=== PATIENT | female | born 1940 | race Caucasian/White ===

== ENCOUNTER 2017-06-23 07:45 | Outpatient (CLI) | payer MEDICARE, OTHER ==
[2017-06-23 11:20] LABS: Hemoglobin 12.9 g/dL (12.0-16.0); Mean Corpuscular HGB CONC 32.4 g/dL (32.0-36.0); Mean Corpuscular Hemoglobin 33.8 pg (27.0-31.0); Mean Platelet Volume 8.2 fL (7.4-10.4); Platelet Count 191 thou/uL (130-400); RBC Distribution Width 13.4 % (11.5-14.5); Red Blood Cell (RBC) Count 3.82 mill/uL (4.20-5.40); White Blood Cell (WBC) Count 8.6 thou/uL (4.8-10.8)
[2017-06-23 11:34] LABS: ALT (SGPT) 13 U/L (8-55); AST (SGOT) 19 U/L (5-34); Alkaline Phosphatase 77 U/L (40-150); Anion Gap 16 mmol/L (10-20); BUN (Urea Nitrogen) 16 mg/dL (9.8-20.1); Bilirubin, Total 0.7 mg/dL (0.2-1.2); Calc. Creatinine Clearance 0 mL/min (70-130); Calcium 9.4 mg/dL (7.8-10.44); Carbon Dioxide 27 mmol/L (23-31); Chloride 103 mmol/L (98-107); Estimated GFR-MDRD 74; Globulin 2.7 g/dL (2.4-3.5); Glucose 90 mg/dL (83-110); Potassium 3.6 mmol/L (3.5-5.1); Protein, Total 6.7 g/dL (6.0-8.3); Sodium 142 mmol/L (136-145)
[2017-06-23 11:40] LABS: INR-International Normal Ratio 1.1; PTT 27.5 SEC (22.9-36.1); Prothrombin Time 14.2 SEC (12.0-14.7)
--- NOTE | 2017-07-01 19:32 | EKG ---
Test Reason : Blood Pressure : / mmHG Vent. Rate : 101 BPM Atrial Rate : 101 BPM P-R Int : 170 ms QRS Dur : 090 ms QT Int : 356 ms P-R-T Axes : 000 111 024 degrees QTc Int : 461 ms Electronic atrial pacemaker Low voltage QRS Left posterior fascicular block Cannot rule out Anterior infarct (cited on or before 12-MAR-2009) Abnormal ECG When compared with ECG of 27-MAY-2010 15:05, Electronic atrial pacemaker has replaced Sinus rhythm Left posterior fascicular block is now Present RSR' pattern in V1 is no longer Present Questionable change in initial forces of Inferior leads Confirmed by ARYA TREVIÑO (2) on 07/01/2017 7:31:32 PM Referred By: KAMILA Confirmed By:ARYA TREVIÑO
== END 2017-06-23 07:46 | disposition home or self-care (01) ==
LOC: LABBT 07:45
PROVIDERS: ATTEND Internal Medicine Cardiovascular Disease
DX: Z01.818 Encounter for other preprocedural examination (principal); I47.2 Ventricular tachycardia; R94.39 Abnormal result of other cardiovascular function study
CPT/HCPCS: 80053; 85027; 85610; 85730; 93005; 93010

== ENCOUNTER → 2017-06-28 | Day surgery (SDC) | payer MEDICARE, OTHER ==
[2017-06-23 08:34] VITALS: BMI 30.9
[~2017-06-28] MED LIST: Acetaminophen 325 MG TAB ONE; Fentanyl 100 MCG/2 ML VIAL ONE; Heparin 10,000 UNITS/1 ML VIAL ONE; Iopamidol 370 76% 100 ML VIAL ONE; Iopamidol 370 76% 50 ML VIAL FS ONE; Midazolam HCl 2 mg/2 ml Vial ONE; Protamine Sulfate 50 MG/5 ML VIAL ONE
== END ==
LOC: CCL 06:03
PROVIDERS: ATTEND Internal Medicine Cardiovascular Disease
DX: I25.5 Ischemic cardiomyopathy (principal); I47.2 Ventricular tachycardia; I25.10 Atherosclerotic heart disease of native coronary artery without angina pectoris; I10 Essential (primary) hypertension; I25.2 Old myocardial infarction; E03.9 Hypothyroidism, unspecified; I48.0 Paroxysmal atrial fibrillation; E78.00 Pure hypercholesterolemia, unspecified; Z87.891 Personal history of nicotine dependence; Z95.810 Presence of automatic (implantable) cardiac defibrillator; Z96.653 Presence of artificial knee joint, bilateral; Z95.5 Presence of coronary angioplasty implant and graft; Z90.49 Acquired absence of other specified parts of digestive tract; Z90.710 Acquired absence of both cervix and uterus; Z98.890 Other specified postprocedural states; Z79.82 Long term (current) use of aspirin; Z79.899 Other long term (current) drug therapy
CPT/HCPCS: 85347; 93459; C1769; 99152; 99153; J1644; J2250; J2720; J3010

== ENCOUNTER 2018-09-21 08:06 | Outpatient (CLI) | payer MEDICARE, OTHER ==
--- NOTE | 2018-09-21 08:20 | RAD ---
F2 views chest. HISTORY: Cardiomyopathy. PA and lateral views of the chest is obtained on 09/21/2018. Comparison made to previous exam from 2014. 2 views chest demonstrates sternotomy wires. Cardiomegaly noted. There is a dual-lead intracardiac defibrillator. Pulmonary vascular congestion seen. No evidence of effusions, pneumonia or pneumothorax seen. IMPRESSION: Cardiomegaly and pulmonary vascular congestion.
== END 2018-09-21 08:07 | disposition home or self-care (01) ==
LOC: BICRAD 08:06
PROVIDERS: ATTEND Internal Medicine Cardiovascular Disease
DX: I25.5 Ischemic cardiomyopathy (principal); I51.7 Cardiomegaly; R09.89 Other specified symptoms and signs involving the circulatory and respiratory systems
CPT/HCPCS: 71046; 80053; 80061; 84443

== ENCOUNTER 2019-03-02 09:48 | Outpatient (CLI) | payer MEDICARE, OTHER ==
--- NOTE | 2019-03-02 11:19 | BD ---
DEXA BONE DENSITY STUDY: INDICATIONS: Postmenopausal. LUMBAR SPINE BMD (g/cm2) T-SCORE L1 1.335 +3.1 L2 1.359 +3.0 L3 1.308 +2.0 L4 1.169 +1.0 TOTAL 1.286 +2.2 LEFT FEMORAL NECK 0.725 -1.1 TOTAL 0.848 -0.8 IMPRESSION: 1. Osteopenia of the left femoral neck. 2. Normal bone mineral density of the lumbar spine. POS: OFF
== END 2019-03-02 09:49 | disposition home or self-care (01) ==
LOC: BICMAMMO 09:48
PROVIDERS: ATTEND Obstetrics & Gynecology
DX: Z13.820 Encounter for screening for osteoporosis (principal); M85.852 Other specified disorders of bone density and structure, left thigh
CPT/HCPCS: 77080

== ENCOUNTER 2019-04-04 11:22 | Outpatient (CLI) | payer MEDICARE, OTHER ==
--- NOTE | 2019-04-04 11:43 | RAD ---
EXAM: Chest 2 views: HISTORY: Ventricular tachycardia COMPARISON: 09/21/2018 FINDINGS: There is an enlarged but stable cardiomediastinal silhouette. The patient is status post sternotomy. The pacemaker is unchanged in position. There is no evidence of consolidation, mass, or pleural effusion. The bones are unremarkable. Calcified implant capsules are seen in the breasts. IMPRESSION: No evidence of acute cardiopulmonary disease
== END 2019-04-04 11:23 | disposition home or self-care (01) ==
LOC: BICRAD 11:22
PROVIDERS: ATTEND Internal Medicine Cardiovascular Disease
DX: I47.2 Ventricular tachycardia (principal); E78.00 Pure hypercholesterolemia, unspecified
CPT/HCPCS: 36415; 71046; 80061

== ENCOUNTER 2019-04-29 14:47 | Day surgery (SDC) | payer MEDICARE, OTHER ==
[~2019-04-29 14:47] MED LIST changes: -Acetaminophen 325 MG TAB ONE; +Dexamethasone 20 MG/5 ML VIAL ONE; -Fentanyl 100 MCG/2 ML VIAL ONE; -Heparin 10,000 UNITS/1 ML VIAL ONE; -Iopamidol 370 76% 100 ML VIAL ONE; -Iopamidol 370 76% 50 ML VIAL FS ONE; +Lidocaine 1% PF 5 ML VIAL ONE; -Midazolam HCl 2 mg/2 ml Vial ONE; +Ondansetron PF 4 MG/2 ML Vial ONE; +PHENYLEPHRINE-NS 100 MCG/ML 10 ML SYRINGE ONE; +PROPOFOL 200 MG/20 ML VIAL ONE; -Protamine Sulfate 50 MG/5 ML VIAL ONE; +Rocuronium Bromide 10 MG/ML (10ML VIAL) ONE; +Succinylcholine Chloride 20 MG/ML 10 ml SYRINGE FS ONE
[2019-04-29] MEDS ORDERED: Fentanyl 100 MCG/2 ML VIAL ONE ×2 (17:01→17:18)
[2019-04-29] MEDS ORDERED: Ondansetron HCl/PF 4 MG/2 ML Vial IVP PRN (17:07)
[2019-04-29] MEDS ORDERED: Phenylephrine HCL 10 MG/ML VIAL ONE (17:18)
--- NOTE | 2019-04-29 17:42 | HP ---
DATE OF CONSULTATION: 04/29/2019 REQUESTING PHYSICIAN: Dr. Dell Quispe. REASON FOR CONSULTATION: Esophageal food impaction. HISTORY OF PRESENT ILLNESS: Dulce Maria Travis is a 78-year-old woman with no significant past gastrointestinal history. She has had a coronary artery bypass graft, pacemaker/defibrillator placement. She takes aspirin 325 mg daily, but no other anticoagulation. Earlier today, she was eating lunch. She says she had a piece of roast beef and had an acute sensation of dysphagia, feeling as if it lodged in the back of her neck. This was quite alarming to her. She had copious secretions, felt like she had debris through her nose, and intermittent gurgling sound in the back of the neck. For quite some time, she was unable to handle her secretions, was having to spit them back out. Upon arrival to the emergency department, she received glucagon. She is no longer bringing up copious secretions yet. The sensation remains in the back of her throat and she still has that intermittent gurgling sound which I can hear distinctly. She can take only small sips of water; anything more, will come back up. This is never happened to her before. She has never undergone upper endoscopy. She has no chest pain or abdominal pain or any other symptoms. REVIEW OF SYSTEMS: Full review of systems including constitutional, head, eyes, ears, nose, throat, GI, , cardiovascular, respiratory, musculoskeletal, neurologic systems is negative except as noted in the HPI. PAST MEDICAL HISTORY: Coronary artery disease status post CABG, pacemaker/defibrillator placement, myocardial infarction, hypothyroidism, hyperlipidemia, appendectomy, hysterectomy, bilateral knee surgery, tonsillectomy. ALLERGIES: NO KNOWN DRUG ALLERGIES. MEDICATIONS: 1. Ambien. 2. Carvedilol. 3. Furosemide. 4. Hydrocodone/acetaminophen. 5. Levothyroxine. 6. Lisinopril. 7. Spironolactone. 8. Tramadol. 9. Atorvastatin. SOCIAL HISTORY: No smoking, alcohol, or drug use. FAMILY HISTORY: Noncontributory. PHYSICAL EXAMINATION: VITAL SIGNS: Temperature 98.5, pulse 97, blood pressure 161/101, and 94% oxygen saturation on room air. GENERAL: A 78-year-old woman, sitting up in the chair, in mild distress. SKIN: No jaundice. No rashes were palpable. Eyes, no scleral icterus. Extraocular movements intact. ENT, mucous membranes moist. No oral lesions. The patient has intermittent gurgling sound from the back of her throat, large tongue. I am unable to view most of the retropharynx. LYMPH: No submandibular or supraclavicular lymphadenopathy. Thyroid, nontender to palpation. HEART: Regular rate and rhythm. Pacemaker/defibrillator in place. Sternotomy scar. LUNGS: Clear to auscultation bilaterally. ABDOMEN: Bowel sounds present. Soft, nontender to deep palpation throughout. EXTREMITIES: No peripheral edema. VESSELS: Radial pulses, 2+ bilaterally. NEUROLOGIC: Cranial nerves 2 through 12 intact bilaterally. No focal deficits. ASSESSMENT AND PLAN: 1. Possible esophageal foreign body. 2. Acute dysphagia. The patient is able to handle her secretions now after glucagon administration, yet the sensation of foreign body persists, and she does continue to have these gurgling noise which is involuntary from the back of the throat. It makes me suspicious for ongoing partial obstruction. She is breathing normally. We will plan to perform EGD urgently this afternoon. I anticipate she will likely be able to be discharged home following the procedure. Further recommendations following EGD. Thank you for the consultation. Please call anytime with questions or concerns. Job ID: [id number]
--- NOTE | 2019-04-29 22:10 | OP ---
DATE OF PROCEDURE: 04/29/2019 [employer]ISS[employer] SURGEON: None. PROCEDURE PERFORMED: EGD with foreign body removal. INDICATIONS: 1. Esophageal food bolus impaction. 2. Acute dysphagia. MEDICATIONS: See Anesthesia record. FINDINGS: After discussion of the risks, benefits, and alternatives of the procedure, informed consent was obtained and witnessed. Pre-endoscopic cardiopulmonary examination was satisfactory. Time-out was performed before sedation was achieved. Sedation was achieved with Anesthesia assistance in the endoscopy unit. The patient was endotracheally intubated for airway protection and placed in left lateral decubitus position. A Pentax adult upper endoscope was placed into the oropharynx and passed through the cricopharyngeus under direct visualization. I immediately encountered a large amount of food matter in the upper esophagus. An extensive amount of time was spent removing food matter from the esophagus. We used Gonzalez Net as well as the rat-tooth forceps, primarily for this purpose. There was a large amount of what appeared to be cabbage, roast beef, and rice, essentially filling up the esophagus all the way to the GE junction. There is severe maceration and mucosal edema of the entire esophagus. There were no longitudinal furrows or concentric rings, no discrete stricture visualized. No mass visualized in the esophagus. Once all of the food had been removed, the endoscope was able to be passed into the stomach. There was a large amount of food material in the gastric fundus, obscuring the view of some of the gastric fundus. Otherwise, the gastric mucosa appeared normal throughout. The endoscope was advanced through the pylorus into the first and second portions of the duodenum, with some food particles within the duodenum as well, but normal appearing mucosa. The endoscope was then withdrawn slowly, again examining the entire esophagus. Again, there was no mass or discrete stricture visualized. The entire esophagus appears edematous and macerated. The upper endoscope was completely withdrawn and the patient allowed to recover. The patient tolerated the procedure well. There were no immediate postprocedure complications. IMPRESSION: 1. Massive amount of food filling most of the esophagus (beef, rice, cabbage), now removed. 2. Severe maceration and edema of the entire esophagus. No mass or discrete stricture visualized. 3. Retained food in the gastric fundus and in the duodenal bulb. 4. Otherwise normal EGD. RECOMMENDATIONS: 1. Pantoprazole 40 mg twice daily. 2. Liquid diet for the next two days, then slowly advance diet as tolerated. 3. Chew food thoroughly. 4. We will have the patient follow up in the GI [facility] with Dr. Palm or his PA in the next 1-2 weeks. The patient will be needing repeat upper endoscopy. Job ID: [id number]
== END 2019-04-29 19:33 | disposition home or self-care (01) ==
LOC: ERS 14:47 → SDC/OP 18:28
PROVIDERS: ATTEND Internal Medicine
PROC: 0DC58ZZ Extirpation of Matter from Esophagus, Via Natural or Artificial Opening Endoscopic (ICD-10-PCS; principal; 2019-04-29)
DX: T18.128A Food in esophagus causing other injury, initial encounter (principal); E78.5 Hyperlipidemia, unspecified; E03.9 Hypothyroidism, unspecified; I25.2 Old myocardial infarction; I25.10 Atherosclerotic heart disease of native coronary artery without angina pectoris; Z79.899 Other long term (current) drug therapy; Z79.82 Long term (current) use of aspirin
CPT/HCPCS: 43247; 96374; 99285; J1610; J1100; J2001; J2370; J2405; J2704; J3010

== ENCOUNTER 2019-05-08 12:02 | Emergency (ER) | payer MEDICARE, OTHER ==
[~2019-05-08 12:02] MED LIST changes: -Dexamethasone 20 MG/5 ML VIAL ONE; +Iopamidol-370 76% 500 ML 1 ML ONE; -Lidocaine 1% PF 5 ML VIAL ONE; -Ondansetron PF 4 MG/2 ML Vial ONE; -PHENYLEPHRINE-NS 100 MCG/ML 10 ML SYRINGE ONE; -PROPOFOL 200 MG/20 ML VIAL ONE; -Rocuronium Bromide 10 MG/ML (10ML VIAL) ONE; -Succinylcholine Chloride 20 MG/ML 10 ml SYRINGE FS ONE
--- NOTE | 2019-05-08 13:21 | CT ---
CT BRAIN WITHOUT CONTRAST: Date: 05/08/19 HISTORY: Fall, syncope, dizziness. FINDINGS: There are changes of chronic small vessel ischemic disease and periventricular white matter. The vent ricular size is appropriate and the basilar cisterns are patent. No evidence of acute infarct, hemorr colin, midline shift, or abnormal extra-axial fluid collections are seen. The bony calvarium is intact . The visualized paranasal sinuses and mastoid air cells are well aerated. IMPRESSION: No CT evidence of acute intracranial process. POS: MILAGROH
[2019-05-08 13:58] LABS: #Eosinphils 0.2 thou/uL (0.0-0.7); #Lymphocytes 0.8 thou/uL (1.20-3.40); #Monocytes 0.5 thou/uL (0.11-0.59); #Neutrophils 13.2 thou/uL (1.40-6.50); %Basophils 0.2 % (0.0-1.0); %Eosinophils 1.2 % (0.0-10.0); %Lymphocytes 5.5 % (21.0-51.0); %Monocytes 3.2 % (0.0-10.0); Hemoglobin 13.6 g/dL (12.0-16.0); Mean Corpuscular HGB CONC 33.3 g/dL (32.0-36.0); Mean Corpuscular Hemoglobin 34.5 pg (27.0-31.0); Platelet Count 163 thou/uL (130-400); RBC Distribution Width 12.1 % (11.5-14.5); Red Blood Cell (RBC) Count 3.94 mill/uL (4.20-5.40); White Blood Cell (WBC) Count 14.6 thou/uL (4.8-10.8)
--- NOTE | 2019-05-08 14:19 | RAD ---
PORTABLE CHEST 1 VIEW: Date: 05/08/19 Time: 1333 hours HISTORY: Syncope. Fall. FINDINGS: Comparison made with exam of 04/04/19. Left-sided AICD remains in place. There are changes of median sternotomy. The heart is enlarged. Aort a is tortuous. Chronic changes are again seen. No lobar consolidation, pneumothoraces, niurka pulmonar y edema, or pleural effusions are identified. IMPRESSION: No acute process. POS: IZZY
--- NOTE | 2019-05-08 14:20 | RAD ---
RIGHT KNEE 4 VIEWS: Date: 05/08/19 HISTORY: Right knee pain. FINDINGS/IMPRESSION: There are postop changes of total knee arthroplasty in good position and alignment. No acute fracture or dislocation identified. POS: MILAGRO
[2019-05-08 14:21] LABS: ALT (SGPT) 22 U/L (8-55); AST (SGOT) 38 U/L (5-34); Albumin 3.8 g/dL (3.4-4.8); Alkaline Phosphatase 69 U/L (40-110); Anion Gap 13 mmol/L (10-20); BUN (Urea Nitrogen) 13 mg/dL (9.8-20.1); Bilirubin, Total 1.2 mg/dL (0.2-1.2); CK (CPK) 811 U/L (29-168); Calc. Creatinine Clearance 0 mL/min (70-130); Calcium 8.6 mg/dL (7.8-10.44); Carbon Dioxide 26 mmol/L (23-31); Chloride 103 mmol/L (98-107); Estimated GFR-MDRD 75; Globulin 2.2 g/dL (2.4-3.5); Glucose 100 mg/dL (83-110); Lipase 8 U/L (8-78); Potassium 3.8 mmol/L (3.5-5.1); Sodium 138 mmol/L (136-145)
[2019-05-08 14:40] LABS: Bilirubin Negative (Negative); Blood, Urine Negative (Negative); Clarity Clear (Clear); Glucose, Urine (Dipstick) Normal (Negative); Leukocyte Negative Leu/uL (Negative); Nitrite Negative (Negative); Protein, Urine (Dipstick) Negative (Neg-Trace); Urobilinogen Normal mg/dL (Less than 2)
--- NOTE | 2019-05-08 15:23 | CT ---
CT ANGIOGRAM OF THE CHEST: HISTORY: Syncope. Dizziness. COMPARISON: None. TECHNIQUE: CT angiogram of the chest is performed in the axial plane. Three-dimensional reformatted images are s ubmitted for interpretation. FINDINGS: Mediastinum: No mass, lymphadenopathy or hematoma. Heart: Cardiomegaly. No significant pericardial fluid. There are coronary calcifications. Aorta: Limited evaluation due to lack of contrast opacification. There is atherosclerosis. Upper solid abdominal viscera: Grossly no abnormality. Reflux of contrast into the inferior vena cava may be due to component of right heart failure. Trachea and central bronchi: Patent. Pleural spaces: No effusion. Lung parenchyma: No suspicious masses or consolidation. There are emphysematous changes. Linear opaci ty in the lung bases may represent subsegmental atelectasis or scarring. Pneumothorax: None. Osseous structures: No lytic or blastic lesions. Pulmonary arteries: Adequate contrast opacification pulmonary arterial system to the level of segment al arteries. No filling defect to suggest pulmonary embolism. IMPRESSION: 1. No evidence of pulmonary artery embolism to the level of the segmental arteries. 2. Emphysematous changes lung parenchyma. 3. Possible right heart failure. Correlate clinically. Transcribed Date/Time: 05/08/2019 3:26 PM
== END 2019-05-08 17:46 ==
LOC: ERS 12:02
DX: R53.1 Weakness (principal); I25.2 Old myocardial infarction; E03.9 Hypothyroidism, unspecified; E78.5 Hyperlipidemia, unspecified; Z79.891 Long term (current) use of opiate analgesic; Z79.899 Other long term (current) drug therapy; W19.XXXA Unspecified fall, initial encounter
CPT/HCPCS: 36415; 70450; 71045; 71275; 80053; 81003; 82140; 82550; 83690; 83880; 84443; 84484; 85025; 85379; 93005; 96360; 96361; Q9967

== ENCOUNTER 2019-05-31 09:16 | Outpatient (CLI) | payer MEDICARE, OTHER ==
--- NOTE | 2019-05-31 11:20 | CT ---
CT ABDOMEN WITH AND WITHOUT CONTRAST: CT PELVIS WITH AND WITHOUT CONTRAST: HISTORY: Microscopic hematuria. Incontinence. COMPARISON: None. TECHNIQUE: Abdomen and pelvic CT is performed with and without contrast following urogram protocol. C oronal reformatted images are submitted for interpretation. FINDINGS: ABDOMEN Lung bases: Chronic changes. Heart: Enlarged. No significant pericardial effusion. Aorta: Atherosclerosis. Mild prominence of the descending thoracic aorta. No significant periaortic f at stranding. Moderate stenosis of the infrarenal abdominal aorta secondary to eccentric noncalcified thrombus. At this level, the aorta measures 3 cm anterior-posterior by 3 cm mediolateral . Liver: Appropriate enhancement. No enhancing masses. Spleen: Appropriate enhancement Pancreas: Appropriate enhancement Adrenal glands: Symmetric enhancement Lymph nodes: No gastrohepatic, retrocrural or periportal lymphadenopathy Portal vein: Patent Gallbladder: Unremarkable Kidneys: Noncontrast: No hydronephrosis, nephrolithiasis or perinephric fat stranding. Contrast: Symmetric enhancement of the kidneys. Delayed: Symmetric excretion into a decompressed intrarenal and extrarenal collecting system. No obvi ous filling defects. Mesentery: No mass, nephropathy, free air or free fluid Alimentary canal: Limited evaluation due to lack of oral contrast administration. No evidence of orly l obstruction. The ileocecal junction is normal. Normal caliber appendix. Scattered fecal material in a nondistended/nondilated colon. Descending colon and sigmoid colon diverticulosis without evidenc e of diverticulitis. Limited evaluation of the colon. PELVIS: Reproductive organs and pelvis: Surgically absent uterus. Pessary is noted. No pelvic mass, lymphaden opathy, free air or free fluid. Urinary bladder: No mucosal abnormality. No filling defects in the dependent portion of the urinary b ladder which is opacified with contrast. No lytic or blastic lesions in the osseous structures IMPRESSION: 1. No evidence of nephrolithiasis or obstructive uropathy. 2. Atherosclerosis and moderate short segment narrowing of a prominent infrarenal abdominal aorta. Ad ditional extensive atherosclerotic disease of the arterial system is noted, incompletely evaluated. Transcribed Date/Time: 05/31/2019 11:30 AM
== END 2019-05-31 09:17 | disposition home or self-care (01) ==
LOC: BICCT 09:16
PROVIDERS: ATTEND Urology
DX: N39.41 Urge incontinence (principal); R31.29 Other microscopic hematuria; I70.0 Atherosclerosis of aorta
CPT/HCPCS: 74178; 81001; 87086

== ENCOUNTER 2019-06-15 06:55 | Day surgery (SDC) | payer MEDICARE, OTHER ==
[2019-06-12 10:39] VITALS: BMI 28.1
[2019-06-15] MEDS ORDERED: Lidocaine Viscous Sol 2% 15 ml UD Cup ONE (08:42)
--- NOTE | 2019-06-15 09:52 | OP ---
DATE OF PROCEDURE: 06/15/2019 PROCEDURES PERFORMED: Esophagogastroduodenoscopy with Hallman dilatation. PREMEDICATION: Given by Anesthesiology Department. PREPROCEDURE DIAGNOSES: Dysphagia with recent food bolus impaction. POSTPROCEDURE DIAGNOSES: 1. Normal esophagus. 2. Z-line at 40 cm and regular. 3. Normal stomach and duodenum. DESCRIPTION OF PROCEDURE: Written consents were obtained prior to procedure. After adequate sedation, forward-viewing endoscope was advanced down the stomach under direct vision to the second portion of duodenum. Both the second portion and the bulb appeared normal. The pylorus was patent. The gastric antrum, body, fundus, and cardia all appeared normal. Retroflexion did not show any abnormality. The GE junction was located at 40 cm with a regular Z-line. The esophagus appeared normal with normal mucosa. The endoscope was removed. A 54-Maltese Hallman dilator was used to empirically dilate the esophagus with three passes with mild resistance. Repeat endoscopy did not show any mucosal tear or bleeding. The instrument was therefore removed. The patient tolerated the procedure well. ASSESSMENT: 1. Normal esophagus, status post empiric dilatation. 2. Otherwise normal upper endoscopy. RECOMMENDATION: 1. Small bite, chew well. 2. Followup as needed. Job ID: [id number]
[2019-06-15] MEDS ORDERED: PROPOFOL 200 MG/20 ML VIAL ONE (14:18)
== END 2019-06-15 10:45 | disposition home or self-care (01) ==
LOC: SDC 06:55
PROVIDERS: ATTEND Internal Medicine Gastroenterology
PROC: 0DJ08ZZ Inspection of Upper Intestinal Tract, Via Natural or Artificial Opening Endoscopic (ICD-10-PCS; principal; 2019-06-15)
PROC: 0D757ZZ Dilation of Esophagus, Via Natural or Artificial Opening (ICD-10-PCS; 2019-06-15)
DX: R13.10 Dysphagia, unspecified (principal); E78.5 Hyperlipidemia, unspecified; I25.10 Atherosclerotic heart disease of native coronary artery without angina pectoris; I25.2 Old myocardial infarction; E03.9 Hypothyroidism, unspecified; M19.90 Unspecified osteoarthritis, unspecified site; G89.29 Other chronic pain; M54.9 Dorsalgia, unspecified; I11.0 Hypertensive heart disease with heart failure; I50.9 Heart failure, unspecified; Z87.891 Personal history of nicotine dependence; Z79.82 Long term (current) use of aspirin; Z79.899 Other long term (current) drug therapy; Z88.8 Allergy status to other drugs, medicaments and biological substances; Z95.1 Presence of aortocoronary bypass graft; Z95.810 Presence of automatic (implantable) cardiac defibrillator
CPT/HCPCS: J2704

== ENCOUNTER 2019-08-31 10:28 | Inpatient (IN) | payer MEDICARE, OTHER ==
[2019-08-31] MEDS ORDERED: PHENYLEPHRINE-NS 100 MCG/ML 10 ML SYRINGE ONE (11:14)
[2019-08-31] MEDS ORDERED: Succinylcholine Chloride 20 MG/ML 10 ml SYRINGE FS ONE (11:14)
[2019-08-31] MEDS ORDERED: Rocuronium Bromide 10 MG/ML (10ML VIAL) ONE (11:14)
[2019-08-31] MEDS ORDERED: Dexamethasone 20 MG/5 ML VIAL ONE (11:14)
[2019-08-31] MEDS ORDERED: Ondansetron PF 4 MG/2 ML Vial ONE ×2 (11:14→11:32)
[2019-08-31 11:16] LABS: Hemoglobin 13.5 g/dL (12.0-16.0); Mean Corpuscular HGB CONC 33.9 g/dL (32.0-36.0); Mean Corpuscular Hemoglobin 34.9 pg (27.0-31.0); Mean Platelet Volume 8.2 fL (7.4-10.4); Platelet Count 165 thou/uL (130-400); RBC Distribution Width 13.4 % (11.5-14.5); Red Blood Cell (RBC) Count 3.86 mill/uL (4.20-5.40); White Blood Cell (WBC) Count 7.8 thou/uL (4.8-10.8)
[2019-08-31] MEDS ORDERED: Morphine 4 MG/ML VIAL ONE ×2 (11:32→14:17)
--- NOTE | 2019-08-31 11:40 | RAD ---
RADIOGRAPH CHEST 1 VIEW: DATE: 08/31/2019 HISTORY: 78-year-old female with abdominal pain. FINDINGS: There is cardiomegaly. The thoracic aorta is tortuous and ectatic. There is no evidence of airspace d ensity, pulmonary alveolar edema, or pneumothorax. The lateral costophrenic angles are not effaced. Diffusely prominent interstitial markings. Mild pulmonary venous engorgement. Left subclavian AICD. S ternotomy wires. Large amount of bowel gas in the upper abdomen at midline and left upper quadrant makes it difficult to evaluate for pneumoperitoneum. If there is clinical concern for pneumoperitoneu m given the history, left lateral decubitus view of abdomen is recommended. IMPRESSION: 1) No consolidation. 2) cardiomegaly without niurka pulmonary edema. 3) ectasia of thoracic aorta. 4) previous open-heart surgery. 5) automatic implantable cardioverter-defibrillator.
[2019-08-31 11:41] LABS: Band 23 % (5-11); Lymphocytes 6 % (21-51); MDiff Complete? YES; Monocytes 1 % (0-10); Neutrophil 70 % (42-75); RBC Morphology Normal
[2019-08-31 11:44] LABS: INR-International Normal Ratio 1.3; PTT 26.8 SEC (22.9-36.1); Prothrombin Time 16.2 SEC (12.0-14.7)
[2019-08-31 11:45] LABS: ALT (SGPT) 14 U/L (8-55); AST (SGOT) 15 U/L (5-34); Albumin 3.9 g/dL (3.4-4.8); Alkaline Phosphatase 65 U/L (40-110); Anion Gap 17 mmol/L (10-20); BUN (Urea Nitrogen) 15 mg/dL (9.8-20.1); Bilirubin, Total 2.3 mg/dL (0.2-1.2); Calc. Creatinine Clearance 0 mL/min (70-130); Calcium 8.9 mg/dL (7.8-10.44); Carbon Dioxide 21 mmol/L (23-31); Chloride 103 mmol/L (98-107); Estimated GFR-MDRD 87; Globulin 2.6 g/dL (2.4-3.5); Glucose 149 mg/dL (83-110); Potassium 3.2 mmol/L (3.5-5.1); Protein, Total 6.5 g/dL (6.0-8.3); Sodium 138 mmol/L (136-145)
[2019-08-31] MEDS ORDERED: Piperacillin/Tazobactam 4.5 GM VIAL ONE (13:46)
--- NOTE | 2019-08-31 13:49 | CT ---
ABDOMEN CT WITH CONTRAST PELVIC CT WITH CONTRAST: Date: 08/31/2019 HISTORY: Abdominal pain. COMPARISON: 05/31/2019. FINDINGS: ABDOMEN CT: Ground-glass opacities, as well as septal thickening in the lung bases. There may be edema superimpos ed upon chronic change. Heart is markedly enlarged. No significant pericardial fluid. There is atherosclerosis of a nonaneury smal aorta. There is also evidence of significant atherosclerotic disease of the distal central super ior mesenteric artery. 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 Gallbladder is mildly distended. Portal vein is patent. Liver, spleen, pancreas, and right adrenal gland have appropriate attenuation and enhancement. Focal nodularity in the medial limb of the left adrenal gland measures 0.9 x 1.3 cm, incompletely character ized. No gastrohepatic, retrocrural, or periportal lymphadenopathy. No mesenteric mass or lymphadenopathy. There is a small amount of fluid in both paracolic gutters. Th ere is also stranding of the abdominal mesentery. There is a significant amount of pneumoperitoneum. Symmetric enhancement of the kidneys. Bilaterally, no obstructive uropathy. There are multiple slightly prominent fluid-filled small bowel loops suggesting an ileus. Ileocecal j unction is unremarkable. The right hemicolon is decompressed. The transverse colon and descending col on appear to be grossly unremarkable. There is bowel wall thickening and pericolonic fat stranding in volving the majority of the sigmoid colon. There appears to be a contained mesenteric perforation in the left lower quadrant measuring 5.2 x [address]: There is complete fluid in the pelvis. Note is made of a pessary. Uterus is surgically absent. Unrema rkable urinary bladder. Small amounts of free air in the pelvis. No mass or lymphadenopathy. No lytic or blastic lesions in the osseous structures. IMPRESSION: Extensive mucosal thickening involving the sigmoid colon. There is adjacent inflammatory change. Ther e is evidence of free fluid in the abdomen and pelvis. There is evidence of pneumoperitoneum. The exa ct etiology of the free air in the abdomen is uncertain but is presumed to be associated with the inf lammatory changes involving the sigmoid colon. General surgical consultation is recommended. Results of study discussed with Dr. Vasquez on 08/31/2019 at 1317 hours. CODE CR. POS: CET
[2019-08-31] MEDS ORDERED: Ketorolac Tromethamine 30 MG/ML VIAL ONE (14:18)
--- NOTE | 2019-08-31 14:47 | HP ---
HISTORY OF PRESENT ILLNESS: Dulce Maria Travis is a 78-year-old female, had presented to the emergency room today, , with onset of abdominal pain Wednesday midnight. She has had pain, says it is difficult to walk. She was evaluated in the emergency room and noted to have a white count of 7, hemoglobin of 13, left shift to 23%. Sodium 138, potassium 3.2, BUN 15, creatinine 0.66. CAT scan of the abdomen and pelvis reveals pneumoperitoneum and changes consistent with perforated diverticulitis. On exam, she has diffusely tender surgical abdomen. I have spoken with her daughter, who is a nurse at [employer] [employer]. The patient and family wish to proceed with exploratory laparotomy, colon resection, colostomy. Risks of infection, bleeding, reoperation, myocardial infarction, stroke, , etc were discussed. The patient lives independently, still drives, but has some cognitive impairment and is on the verge of not driving any time soon. She is ambulatory with a cane. She lives in a facility for 55 years of age and older. She lives independently. ALLERGIES: TRAZODONE, ZOLPIDEM. SOCIAL HISTORY: Tobacco, none. Alcohol, none. MEDICATIONS: 1. Spironolactone. 2. Sertraline. 3. Protonix. 4. Oxybutynin. 5. Lisinopril. 6. Levothyroxine. 7. Hydrocodone. 8. Furosemide. 9. Carvedilol. 10. Amiodarone. 11. Aspirin. PAST SURGICAL HISTORY: Bilateral total knee replacements, appendectomy, total abdominal hysterectomy. She had an upper endoscopy last year, a few months apart. She had a removal of food bolus and empiric dilatation by Dr. Palm, there was no noted stricture. Last colonoscopy was more than 10 years ago. She has had a coronary artery bypass grafting in 2010 after myocardial infarction. She is followed by Dr. Butler. She is on amiodarone for some arrhythmias. PAST MEDICAL HISTORY: Coronary artery disease, hypertension, cognitive impairment. Of note is that I have talked to the patient and her daughter, who is power of managing attorney, the patient is a DNR and wished to continue that, we will suspend that during the operation. They understand this concept. If she has any complications, they wish to discuss her care. PHYSICAL EXAMINATION: VITAL SIGNS: Blood pressure 150/78, respiratory rate 18. HEAD EARS, EYES, NOSE AND THROAT: Unremarkable. LUNGS: Clear to auscultation. CARDIAC: Regular rate and rhythm. ABDOMEN: Diffusely tender, no bowel sounds, peritoneal signs. EXTREMITIES: No ankle edema. Chronic venous stasis disease. LABORATORY DATA: As noted. ASSESSMENT AND PLAN: 1. Perforated diverticulitis with peritonitis. We would proceed with laparotomy, abdominal washout, colostomy, sigmoid resection. Risks and benefits discussed. 2. Coronary artery disease, stable. Saw Dr. Butler a few days ago. 3. Cognitive impairment. 4. Hypertension. Job ID: [id number]
[2019-08-31 15:01] LABS: Bacteria/HPF None Seen HPF (None Seen); Bilirubin Negative (Negative); Blood, Urine 2+ (Negative); Clarity Clear (Clear); Glucose, Urine (Dipstick) Normal (Negative); Leukocyte Negative Leu/uL (Negative); Nitrite Negative (Negative); Protein, Urine (Dipstick) 50 mg/dL (Neg-Trace); Squamous Epithelial None Seen HPF (0-3); Urobilinogen 3 mg/dL (Less than 2); WBC/HPF 0-3 HPF (0-3)
[2019-08-31 15:18] LABS: Lactic Acid 2.2 mmol/L (0.5-2.2)
[2019-08-31] MEDS ORDERED: Fentanyl 250 MCG/5 ML VIAL ONE (16:08)
[2019-08-31] MEDS ORDERED: Ketamine 50 MG/ML (10ML VIAL) ONE (16:26)
[2019-08-31] MEDS ORDERED: Phenylephrine 10 MG/ML VIAL ONE (16:27)
[2019-08-31] MEDS ORDERED: Bupivacaine 0.25% HCL 30 ML VIAL ONE (16:47)
[2019-08-31] MEDS ORDERED: Sodium Chloride 0.9% 30 ML ONE (16:47)
[2019-08-31] MEDS ORDERED: Lidocaine 1% w/Epinephrine 1:100K 20 ML VIAL ONE (16:47)
[2019-08-31] MEDS ORDERED: Dextrose 50% Abboject 50 ML SYRINGE SLOW IVP PRN (20:14)
[2019-08-31] MEDS ORDERED: Dextrose 5% in Water 1,000 ML IV PRN (20:14)
[2019-08-31] MEDS ORDERED: Lactated Ringer's 1,000 ML IV SCH (20:30)
[2019-08-31] MEDS ORDERED: [UNRECOGNIZED DRUG - REMARK] FS SCH (20:30)
[2019-08-31 20:49] LABS: Hemoglobin 10.4 g/dL (12.0-16.0); Mean Corpuscular HGB CONC 34.1 g/dL (32.0-36.0); Mean Corpuscular Hemoglobin 35.4 pg (27.0-31.0); Mean Platelet Volume 8.1 fL (7.4-10.4); Platelet Count 147 thou/uL (130-400); RBC Distribution Width 13.3 % (11.5-14.5); Red Blood Cell (RBC) Count 2.95 mill/uL (4.20-5.40); White Blood Cell (WBC) Count 4.3 thou/uL (4.8-10.8)
[2019-08-31 20:58] LABS: Actual Bicarbonate (HCO3a) 19.7 mEq/L (22-28); Base Excess (BEa) -3.2 mEq/L (-2.0 to +3.0); CO2 Tension 28.6 mmHg (35.0-45.0); Calcium, Ionized 1.07 mmol/L (1.12-1.30); Hemoglobin (Hb) 10.3 g/dL (12.0-16.0); pH, Arterial 7.46 (7.35-7.45)
[2019-08-31] MEDS ORDERED: Potassium Chloride 40 MEQ in Premix Bag 1 BAG IVPB SCH (21:00)
[2019-08-31 21:02] LABS: Anion Gap 11 mmol/L (10-20); BUN (Urea Nitrogen) 16 mg/dL (9.8-20.1); Calc. Creatinine Clearance 0 mL/min (70-130); Calcium 7.6 mg/dL (7.8-10.44); Carbon Dioxide 24 mmol/L (23-31); Chloride 106 mmol/L (98-107); Estimated GFR-MDRD Greater than 90; Glucose 144 mg/dL (83-110); Potassium 3.4 mmol/L (3.5-5.1); Sodium 138 mmol/L (136-145)
[2019-08-31 21:02] LABS: Puncture Site RBR
[2019-08-31] MEDS ORDERED: Propofol 1,000 MG/100 ML VIAL IV PRN (21:02)
[2019-08-31] MEDS ORDERED: Lorazepam 2 MG/ML VIAL SLOW IVP PRN (21:02)
[2019-08-31] MEDS ORDERED: DISCONTINUE PREVIOUS NARCOTIC PAIN MEDICATIONS AND BENZODIAZEPINES FS SCH (21:02)
[2019-08-31] MEDS ORDERED: Fentanyl BOLUS 250 ML IVPB PRN (21:02)
[2019-08-31] MEDS ORDERED: fentaNYL Citrate/PF 2,000 MCG in Sodium Chloride 0.9% 60 ML IV SCH (21:02)
[2019-08-31] MEDS ORDERED: Propofol BOLUS 1,000 MG/100 ML VIAL IV PRN (21:02)
[2019-08-31 21:12] LABS: Band 32 % (5-11); Lymphocytes 7 % (21-51); MDiff Complete? YES; Monocytes 4 % (0-10); Neutrophil 57 % (42-75)
[2019-08-31 21:13] VITALS: BMI 28.3
--- NOTE | 2019-08-31 21:13 | RAD ---
PORTABLE CHEST: 08/31/19 HISTORY: Respiratory distress. COMPARISON: Earlier examination same day. There has been interval placement of an endotracheal and NG tubes which appear to be in satisfactory position. A right sided subclavian line is now present with catheter tip overlying the superior vena cava. No pneumothorax. IMPRESSION: Placement of right sided central line. No pneumothorax. POS: [facility]
[2019-08-31] MEDS ORDERED: Sodium Chloride 0.9% 1,000 ML IV SCH (21:15)
[2019-08-31] MEDS ORDERED: Albumin 25% 25 GM/100 ML BOT IVPB SCH (21:15)
[2019-08-31] MEDS: Enoxaparin Sodium 40 MG/0.4 ML SYRINGE SC SCH (22:19)
[2019-08-31] MEDS: Carvedilol 3.125 MG TAB PO SCH (22:49)
[2019-08-31] MEDS: Potassium Chloride 20 MEQ in Lactated Ringer's 1,000 ML IV SCH (23:07)
[2019-08-31] MEDS: Piperacillin/Tazobactam 4.5 GM in Sodium Chloride 0.9% 100 ML IVPB SCH (23:12)
[2019-09-01 03:53] LABS: Band 57 % (5-11); Hemoglobin 10.8 g/dL (12.0-16.0); Lymphocytes 7 % (21-51); MDiff Complete? YES; Mean Corpuscular Volume 99.8 fL (78.0-98.0); Mean Platelet Volume 8.2 fL (7.4-10.4); Metamyelocyte 2 % (0-0); Monocytes 3 % (0-10); Neutrophil 31 % (42-75); Platelet Count 99 thou/uL (130-400); Platelet Morphology Comment Appears Decreased; RBC Distribution Width 14.2 % (11.5-14.5); Red Blood Cell (RBC) Count 3.19 mill/uL (4.20-5.40); White Blood Cell (WBC) Count 3.8 thou/uL (4.8-10.8)
[2019-09-01 03:57] LABS: Anion Gap 10 mmol/L (10-20); BUN (Urea Nitrogen) 16 mg/dL (9.8-20.1); Calc. Creatinine Clearance 91 mL/min (70-130); Calcium 7.3 mg/dL (7.8-10.44); Carbon Dioxide 23 mmol/L (23-31); Chloride 108 mmol/L (98-107); Estimated GFR-MDRD Greater than 90; Glucose 116 mg/dL (83-110); Magnesium 1.5 mg/dL (1.6-2.6); Potassium 3.2 mmol/L (3.5-5.1); Sodium 138 mmol/L (136-145)
[2019-09-01] MEDS: Potassium Chloride 20 MEQ in Lactated Ringer's 1,000 ML IV SCH ×3 (05:23→21:36)
[2019-09-01] MEDS: Piperacillin/Tazobactam 4.5 GM in Sodium Chloride 0.9% 100 ML IVPB SCH ×3 (05:23→17:16)
[2019-09-01 07:32] LABS: Actual Bicarbonate (HCO3a) 19.9 mEq/L (22-28); Base Excess (BEa) -2.9 mEq/L (-2.0 to +3.0); CO2 Tension 27.8 mmHg (35.0-45.0); Calcium, Ionized 1.03 mmol/L (1.12-1.30); Carboxyhemoglobin (COHb) 0.7 gm% (0.0-3.0); Hemoglobin (Hb) 10.1 g/dL (12.0-16.0); O2 Tension (PaO2) 139.7 mmHg (> 70.0); Potassium - ABG Lab 3.35 mmol/L (3.70-5.30); pH, Arterial 7.47 (7.35-7.45)
[2019-09-01 07:33] LABS: Puncture Site RRA
[2019-09-01] MEDS ORDERED: FLU VACC TS2019-20(65YR UP)/PF 180 MCG/0.5 ML SYRINGE IM ONE (09:00)
[2019-09-01] MEDS ORDERED: Prevnar 13-Val Conj/PF 0.5 ML SYRINGE IM ONE (09:00)
[2019-09-01] MEDS: Pantoprazole 40 MG VIAL IVP SCH (09:21)
[2019-09-01] MEDS: Carvedilol 3.125 MG TAB PO SCH ×2 (10:37→21:35)
--- NOTE | 2019-09-01 10:37 | RAD ---
CHEST 1 VIEW PORTABLE: Date: 09/01/2019 HISTORY: Ventilated patient, respiratory insufficiency. COMPARISON: 08/31/2019. FINDINGS: Life support tubes remain in place and stable. Postop midline sternotomy and left ICD changes. Cardio megaly with some bilateral vascular congestion. No new confluent pneumonia or overt edema. IMPRESSION: Stable increased markings and bilateral vascular congestion with cardiomegaly. Stable life support tu bes and lines. Continue short-term follow-up. POS: [facility]
[2019-09-01] MEDS ORDERED: Sodium Phosphate 30 MMOL, Magnesium Sulfate 4 GM in Sodium Chloride 0.9% 250 ML 250 ML IVPB SCH (11:30)
[2019-09-01] MEDS ORDERED: Sodium Chloride 0.9% 1,000 ML IV SCH (11:30)
[2019-09-01] MEDS ORDERED: Potassium Chloride 40 MEQ in Premix Bag 1 BAG IVPB SCH (11:30)
[2019-09-01] MEDS ORDERED: Magnesium Sulfate 4 GM in Sodium Chloride 0.9% 250 ML 250 ML IVPB SCH (11:30)
[2019-09-01] MEDS: Ketorolac Tromethamine 30 MG/ML VIAL IVP PRN (12:03)
--- NOTE | 2019-09-01 12:17 | PRG ---
DATE OF SERVICE: 09/01/2019 SUBJECTIVE: Dulce Maria Travis is doing well, 1 day postop central line placement, laparotomy, and resection of distal transverse colon, splenic flexure, descending colon, sigmoid colon for perforated diverticulitis with peritonitis. Postoperatively, in the ICU, she dropped her pressure, after having initially normal blood pressure of 120 systolic, dropped her pressure in the 60s. She was given 2 units of blood. Hemoglobin returned at 10 prior to initiation of transfusion. Prior to transfusion, her blood pressure was over 100. Now, her urine output is 10 to 15 mL per hour and pressure in the 90s to 100s. She seems to be dehydrated. She has IV fluids 150 per hour. Her sodium this morning is 138, potassium 3.2, chloride 108, BUN and creatinine are 16 and 0.6. Magnesium and phosphorus were low. This morning, her hemoglobin is 10.8, white count 3.8. Hemoglobin relatively stable from last night. Platelet count 99,000. OBJECTIVE: LUNGS: Clear to auscultation. CARDIAC: Regular rate and rhythm without murmur or gallop. Slightly tachycardic. ABDOMEN: Soft. Quiet. Postoperative tenderness. Wound VAC in place, placed this morning by Wound Care Team. Colostomy is healthy without any output. IMAGING STUDIES: Chest x-ray reveals slightly increased markings, but no overt congestive failure. Pacemaker is in place. Endotracheal tube and central line are in proper position. ASSESSMENT AND PLAN: 1. Perforated diverticulitis with peritonitis, status post colon resection and colostomy, Rina pouch. We would give her another liter of bolus of IV fluid. She is on albumin 25 g q.6 hours. Continue IV fluids 150 per hour. Continue intravenous antibiotics. 2. I had discussed with the patient's daughter, SallyMELECIO, who states that the patient is a DNR and we will order that. We will continue all efforts to wean her and resuscitate her in getting through this operation. 3. Pacemaker status. Coronary artery disease, status post coronary artery bypass grafting 10 years ago in 2009. She saw Dr. Butler a few days prior to this event. We are awaiting Cardiology consult, but there is nothing urgent. 4. Cognitive impairment, mild. She is ambulatory at home and still drives, although her daughter has been thinking about withdrawing that privileges due to concerns about her cognitive ability. 5. Takes [place] at home. 6. Ileus, as expected. Continue NG tube, n.p.o. 7. Respiratory failure. Wean vent as able. 8. Magnesium and phosphorus and potassium replacement. Check hemoglobin this afternoon. 9. The patient intraoperatively had a small tear of the inferior pole of the capsule, hemostatic agents applied. Hemoglobin seems to be stable. Check her hemoglobins today. Job ID: [id number]
[2019-09-01] MEDS ORDERED: Morphine 10 MG/ML VIAL SLOW IVP PRN (12:20)
[2019-09-01] MEDS ORDERED: Acetaminophen 500 MG TAB PO PRN (15:07)
[2019-09-01] MEDS ORDERED: Acetaminophen 650 MG Suppository PR PRN (15:08)
--- NOTE | 2019-09-01 16:45 | CON ---
DATE OF CONSULTATION: HISTORY: Dulce Maria Travis is a 78-year-old white female initially evaluated on November 14, 2009. She had denied any previous cardiac problems. However, two days prior to that, she had symptoms of chest burning, which lasted only approximately 30 minutes. On the day prior to admission, she was nauseated, felt poorly, did not go to work. She had increasing dyspnea and then came to the emergency room for further evaluation. She was unable to lie flat in bed. She denied any recurrence of the chest discomfort. Cardiac enzymes revealed a CK-MB of 124.6 at admission with a troponin I of 70.5. It was felt she probably had a myocardial infarction two days prior to admission. EKG revealed inferior infarction as well as anterior infarction with Q-waves V1 through V4 and 0.[address]-segment elevation. She had rales on examination and also had history of PND. She was a smoker at that time. She was diuresed. Echo revealed severe left ventricular dysfunction with akinesis of the mid to distal septum, apex, mid to distal lateral wall, mid to distal inferoposterior wall with ejection fraction of 15% to 20%. There was mild mitral regurgitation and moderate tricuspid regurgitation. She was diuresed UNTIL she could lie supine in bed and underwent cardiac catheterization 2 days after admission. This revealed a wedge of 18, cardiac output of 4.32 L/minute. There was mid to distal anterior, apical and mid to distal inferior akinesis with ejection fraction of 15% to 20%. There was a 90% mid LAD stenosis after a high first diagonal, 50% lesion in the diagonal. The circumflex had a 90% proximal stenosis. The right coronary artery had an 80% ostial stenosis and then an 80% followed by another 80% mid stenosis and a 70% to 80% distal stenosis. She underwent CABG x4 by Dr. Mckeon with OCHOA to the LAD, saphenous vein graft to the ramus, obtuse marginal and right coronary artery. She also underwent epicardial maze procedure with ligation of left atrial appendage. She required intra- aortic balloon pump after CABG with her severe left ventricular dysfunction. She was gradually weaned from the balloon pump and the ventilator and then extubated. Postoperatively, she had some transient atrial flutter and was placed on amiodarone. She ultimately went to rehab followed by assisted in [place]. She was readmitted in December 2009. She has been discharged from assisted on furosemide; however, she stated she did not have any Lasix for 2 weeks. She then began to notice that whenever she would lie supine in bed, she became dyspneic and ultimately had increasing dyspnea and came to the emergency room. Chest x-ray revealed cardiomegaly with mild congestive heart failure with some cephalization of blood flow. CT angiogram revealed cardiomegaly but no evidence of pulmonary embolism. She has a small right pleural effusion. She was given diuretics with improvement in her breathing. She was started back on her Lasix and low-dose lisinopril and spironolactone were added. In May 2010, she underwent placement of a dual-chamber ICD due to continued severe left ventricular dysfunction. Overall, she has been doing surprisingly well given her severe left ventricular dysfunction. Due to increased episodes of nonsustained ventricular tachycardia, she underwent repeat catheterization on June 28, 2017. This revealed severe global hypokinesis with ejection fraction of 15% to 20%. There was an 80% mid LAD, 20% ramus, total occlusion in the mid circumflex, 80% RCA and 40% distal RCA. Bypass grafts were patent with patent OCHOA to the LAD, vein graft to the obtuse marginal and vein graft to the right coronary artery. There was a ramus graft that was piggybacked onto the obtuse marginal graft that was occluded; however, the ramus did not have any significant stenosis. She was placed on amiodarone with reduction in the episodes of ventricular tachycardia. In March 2019, she had increased episodes of ventricular tachycardia up to 10 per day. She was only on amiodarone 100 daily at that time. This was increased to 200 mg b.i.d. for 1 week and then 200 daily. She had significant reduction in her episodes of nonsustained ventricular tachycardia since that time. Since the beginning of April, she has had four episodes all of which occurred on June 03. She was last seen on August 28. She denies any chest pain, shortness of breath, or leg edema and had been doing well. She now presents with abdominal pain which was so bad it made it difficult to walk. CT scan of the abdomen and pelvis revealed pneumoperitoneum with evidence of perforated diverticulitis. Today, she underwent exploratory laparotomy. Apparently, she had a bowel resection for ruptured diverticulum, although I do not see an operative report in the computer nor in the chart. At the present time, she is intubated but awake. PAST MEDICAL HISTORY: Hypercholesterolemia, hypertension, coronary artery disease, severe ischemic cardiomyopathy, and hypothyroidism. MEDICATIONS: 1. Aspirin 325 daily. 2. Carvedilol 6.25 b.i.d. 3. Repatha q.2 weeks. 4. Furosemide 40 mg daily. 5. Levothyroxine 50 mcg daily. 6. Lisinopril 2.5 q.a.m. 7. Ditropan 10 mg q.a.m. 8. Pantoprazole 40 b.i.d. 9. Sertraline 50 mg q.a.m. 10. Spironolactone 25 q.a.m. ALLERGIES: AMBIEN AND TRAZODONE. PAST SURGICAL HISTORY: CABG, ICD placement-dual chamber, right total knee replacement, appendectomy, hysterectomy, tonsillectomy. SOCIAL HISTORY: She smoked one half pack per day, but stopped at the time of CABG. She does not drink alcohol. 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 REVIEW OF SYSTEMS: Unobtainable as the patient being intubated. PHYSICAL EXAMINATION: VITAL SIGNS: Blood pressure 85/54, pulse of 71. HEENT: PERRL. NECK: Supple. CHEST: Clear. CARDIAC: S1 and S2 normal without any S3, S4, or murmurs. ABDOMEN: Quiet with mild diffuse tenderness. EXTREMITIES: Revealed no clubbing, cyanosis, or edema. NEUROLOGICAL: The patient is intubated and alert and follow commands. SKIN: Warm and dry. LABORATORY DATA: EKG reveals atrial pacing with evidence of inferior infarction and anterior infarction. Her defibrillator was interrogated and her last episode of nonsustained ventricular tachycardia was on June 03, 2019. Her volume status at the present time is under good control. She has not had any significant atrial arrhythmias. Hemoglobin 10.8, hematocrit 31.8, white count 3800, platelets 99, 000. INR 1.3. PH 7.47, pCO2 of 27.8, PO2 of 39.7. Sodium 138, potassium 3.2, chloride 108, carbon dioxide 23, BUN 16, and creatinine 0.60. IMPRESSION: 1. Ruptured diverticular disease with free air in the abdomen. She is status post laparotomy and bowel resection. 2. Status post coronary artery bypass graft in 2009. 3. Severe ischemic cardiomyopathy with ejection fraction of 15%-20%.. 4. Nonsustained ventricular tachycardia with significant reduction in the doses with increasing the amiodarone from 100 to 200 mg daily. 5. Old myocardial infarction. 6. Hypercholesterolemia under poor control but now she is currently getting Repatha on a regular basis. 7. Hypertension. 8. Former smoker. 9. Hypothyroidism. PLAN: The patient will continue to be monitored. Her carvedilol and lisinopril need to be resumed as soon as possible. Her volume status also needs to be a constant concern. We will follow the patient with you. Job ID: [id number] MTDD
[2019-09-01 18:20] LABS: Anion Gap 12 mmol/L (10-20); BUN (Urea Nitrogen) 20 mg/dL (9.8-20.1); Calc. Creatinine Clearance 87 mL/min (70-130); Calcium 7.5 mg/dL (7.8-10.44); Carbon Dioxide 21 mmol/L (23-31); Chloride 112 mmol/L (98-107); Estimated GFR-MDRD Greater than 90; Glucose 100 mg/dL (83-110); Potassium 4.4 mmol/L (3.5-5.1); Sodium 141 mmol/L (136-145)
[2019-09-01 18:39] LABS: Band 72 % (5-11); Hemoglobin 9.9 g/dL (12.0-16.0); Lymphocytes 7 % (21-51); MDiff Complete? YES; Macrocytosis SLIGHT = 6-15 cells (100X) (0-5/hpf); Mean Corpuscular HGB CONC 33.9 g/dL (32.0-36.0); Mean Corpuscular Hemoglobin 34.2 pg (27.0-31.0); Monocytes 2 % (0-10); Neutrophil 19 % (42-75); Ovalocytes SLIGHT = 2-5 cells (100X) (0-1/hpf); Platelet Count 103 thou/uL (130-400); Platelet Morphology Comment Appears Decreased; Polychromasia SLIGHT = 2-3 cells (100X) (0-2/hpf); RBC Distribution Width 14.6 % (11.5-14.5); Red Blood Cell (RBC) Count 2.91 mill/uL (4.20-5.40); Tear Drops SLIGHT = 2-5 cells (100X) (0-1/hpf)
[2019-09-01] MEDS: Enoxaparin Sodium 40 MG/0.4 ML SYRINGE SC SCH (21:35)
[2019-09-02] MEDS: Potassium Chloride 20 MEQ in Lactated Ringer's 1,000 ML IV SCH ×3 (00:13→12:30)
[2019-09-02] MEDS: Piperacillin/Tazobactam 4.5 GM in Sodium Chloride 0.9% 100 ML IVPB SCH ×5 (00:13→23:01)
--- NOTE | 2019-09-02 01:26 | CON ---
DATE OF CONSULTATION: 09/01/2019 HISTORY OF PRESENT ILLNESS: Ms. Travis is a very pleasant 78-year-old female who presented with abdominal discomfort, which led to a laparotomy and an ostomy. Unfortunately, there is no operative note to review yet. She apparently had some colon segment taken out. I was consulted to assist in weaning from mechanical ventilation. According to Dr. Veliz's notes, she had perforated diverticulitis, peritonitis. PAST MEDICAL HISTORY: Remarkable for; 1. Knee replacements bilaterally. 2. Appendectomy. 3. Hysterectomy. 4. History of impaction of food bolus with dilation of her esophagus by Dr. Palm last year, but she apparently did not have a stricture. 5. History of coronary artery bypass grafting in 2009. 6. History of atrial arrhythmias, on amiodarone. 7. History of coronary artery disease. 8. History of hypertension. 9. Some history of cognitive impairment. FAMILY HISTORY: Negative for lung disease in early age. REVIEW OF SYSTEMS: Not obtainable since she is intubated. PHYSICAL EXAMINATION: VITAL SIGNS: Blood pressure is 107/53, heart rate is in 70s, respiratory rate is in the teens, and minute volume is 7 L/minute. HEAD NECK EXAM: Unremarkable. She had an NG tube in place. LUNGS: Clear. HEART: Regular rhythm. No S3. ABDOMEN: Obviously tender diffusely, but mildly. EXTREMITIES: Without clubbing, cyanosis, or edema. She moves all extremities equally neurologically. LABORATORY DATA: White count 7.0, hemoglobin 9.9, and platelets 103,000. Sodium 141, potassium 4.4, chloride 112, bicarb 29, BUN 20, and creatinine 0.63. PH 7.47, CO2 is 27, and PO2 is 139. IMPRESSION: Peritonitis, status post perforated diverticulum, status post laparotomy, clinically stable. I felt she was a candidate for extubation. This has been done successfully. CRITICAL CARE TIME: Thirty minutes. Job ID: [id number] MTDD
[2019-09-02 05:22] LABS: #Lymphocytes 0.4 thou/uL (1.20-3.40); #Monocytes 0.3 thou/uL (0.11-0.59); #Neutrophils 6.8 thou/uL (1.40-6.50); %Lymphocytes 4.7 % (21.0-51.0); %Monocytes 4.6 % (0.0-10.0); %Neutrophils 90.8 % (42.0-75.0); Hemoglobin 9.9 g/dL (12.0-16.0); Mean Corpuscular HGB CONC 33.8 g/dL (32.0-36.0); Mean Corpuscular Hemoglobin 34.3 pg (27.0-31.0); Mean Platelet Volume 8.7 fL (7.4-10.4); Platelet Count 104 thou/uL (130-400); RBC Distribution Width 14.5 % (11.5-14.5); Red Blood Cell (RBC) Count 2.89 mill/uL (4.20-5.40); White Blood Cell (WBC) Count 7.5 thou/uL (4.8-10.8)
[2019-09-02 05:45] LABS: Anion Gap 11 mmol/L (10-20); BUN (Urea Nitrogen) 19 mg/dL (9.8-20.1); Calc. Creatinine Clearance 90 mL/min (70-130); Calcium 7.9 mg/dL (7.8-10.44); Carbon Dioxide 23 mmol/L (23-31); Chloride 110 mmol/L (98-107); Estimated GFR-MDRD Greater than 90; Glucose 96 mg/dL (83-110); Magnesium 2.4 mg/dL (1.6-2.6); Potassium 4.7 mmol/L (3.5-5.1); Sodium 139 mmol/L (136-145)
[2019-09-02 06:05] LABS: Phosphorus 3.3 mg/dL (2.3-4.7)
[2019-09-02] MEDS: hydrALAZINE 20 MG/ML VIAL SLOW IVP PRN ×2 (09:40→17:19)
[2019-09-02] MEDS: Ketorolac Tromethamine 30 MG/ML VIAL IVP PRN (09:40)
[2019-09-02] MEDS: Pantoprazole 40 MG VIAL IVP SCH (09:44)
--- NOTE | 2019-09-02 10:18 | OP ---
DATE OF PROCEDURE: 08/31/2019 PREOPERATIVE DIAGNOSIS: Perforated diverticulitis with peritonitis, poor IV access. POSTOPERATIVE DIAGNOSIS: Perforated diverticulitis with peritonitis, poor IV access. PROCEDURE PERFORMED: Right subclavian vein triple-lumen catheter, laparotomy, mobilization of the splenic flexure, distal transverse splenic flexure, descending colon, sigmoid colon resection with Rina pouch marched with a 2-0 Prolene suture, end-colostomy of left lower quadrant distal transverse colon, mobilization of the transverse colon. ANESTHESIA: General. ESTIMATED BLOOD LOSS: 400 mL. Note: The inferior capsular spleen was bleeding and cautery used for hemostasis as well as hemostatic agents, FloSeal, Wilfredo, Gel-Foam. Wound left open for wound VAC application. Mota catheter being placed in the ER. DESCRIPTION OF PROCEDURE: The patient was taken to the operating room where under general anesthesia, right paraclavicular area was prepared with ChloraPrep and draped in routine fashion. Seldinger technique used to place a triple-lumen catheter, securing with 3-0 silk suture, each port filled with blood and flushed with saline solution, connected IV fluids. Sterile CHD dressing applied. The patient tolerated the procedure well. Abdomen was prepared with ChloraPrep and draped in routine fashion. Incision was made from above the umbilicus to pubis, carried down through skin and subcutaneous tissue. There was a perforated diverticulitis with a hole in the sigmoid colon that was markedly indurated. Proximal colon mesentery divided with the LigaSure and cautery and colon divided with DEIDRE stapler. Inferior mesenteric artery dissected free, divided between clamps, ligating with 2-0 silk ties. Mesentery divided with LigaSure down toward the sacrum and in the lower sigmoid colon more normal area was skeletonized and divided with a DEIDRE stapler. It was marked with 2-0 Prolene suture. Ureter was identified and kept free of harm throughout the procedure. After I divided the inferior mesenteric artery, the left colon became devascularized. The left colon was mobilized. Splenic flexure mobilized. Splenic flexure was difficult to mobilize as there were omental adhesions in the left upper quadrant. Careful dissection did not violate the colon, but there was some bleeding from the inferior spleen. Gastrocolic ligament along the distal transverse colon, mid transverse colon were taken down with the cautery. Viable portion of the distal transverse colon, the colon was divided with DEIDRE stapler. Mesentery divided with ligatures, mobilized, yielding the free of harm. Colon submitted to pathology along with the sigmoid colon. Gastrocolic ligament taken down to the right of midline, mobilized the transverse colon to allow to reach into the pelvis for future consideration of reversal. It would reach into the pelvis. Abdominal cavity was thoroughly irrigated with saline solution and irrigant evacuated. Hemostasis was noted. There was bleeding from the anterior tip of the spleen, identified and controlled with cautery. Good hemostasis was noted with some persistent slight oozing. FloSeal, Wilfredo, and Gel-Foam applied. Pressure held, it was hemostatic. Abdominal cavity prior to this has been irrigated with about 8 L of saline solution. All quadrants of the subdiaphragmatic and subhepatic gutters, pelvis, central abdomen, and irrigant evacuated. Hemostasis noted. A circular defect of skin removed in the left lower quadrant for the colostomy. The cruciate incision was made in the anterior rectus fascia. Rectus muscle split. Posterior fascia/peritoneum incised, dilated digitally to three fingerbreadths and colon brought out properly oriented. Abdominal cavity thoroughly inspected. Good hemostasis noted. Sponge and needle counts were correct. Seprafilm applied between the viscera and the abdominal wall. Small bowel had been inspected from the ligament of Treitz to cecum, noted to be normal. The midline fascia closed with continuous suture of #1 PDS. Skin and subcutaneous tissues irrigated. Central skin approximated with luís upper and lower apex with posterior luís, otherwise, skin and subcutaneous tissues are left open and a gauze dressing applied for wound VAC application tomorrow. Our gloves were changed and colostomy maturation undertaken. Dusky colon excised for a few centimeters to healthy colon and four Pramod sutures of 3-0 Vicryl placed and simple sutures 3-0 Vicryl completed maturation. Colostomy appliance secured. The patient tolerated the procedure well and transferred to the ICU in critical condition on the ventilator. She remained normotensive throughout the operation and pressors were not required. Job ID: [id number]
--- NOTE | 2019-09-02 11:14 | PDOC.CPN ---
- Subjective Date: 09/02/19 Time: 13:21 Interval history: Only complaining of thirst and mild abdomnial pain - Objective Allergies/Adverse Reactions: Allergies Allergy/AdvReac Type Severity Reaction Status Date / Time trazodone Allergy Verified 08/31/19 22:06 zolpidem [From Ambien] Allergy hallucinati Verified 08/31/19 22:06 ons Visit Medications: Current Medications Acetaminophen (Tylenol) 1,000 mg PO Q6H PRN PRN Reason: Fever > 101 Acetaminophen (Tylenol) 650 mg OR Q6H PRN PRN Reason: Fever > 101 Albuterol/Ipratropium (Duoneb) 3 ml NEB Q4H PRN PRN Reason: Wheezing Carvedilol (Coreg) 6.25 mg PO BID [facility] Last Admin: 09/01/19 21:35 Dose: 6.25 mg Dextrose/Water (Dextrose 50%) 25 gm SLOW IVP PRN PRN PRN Reason: Hypoglycemia Enoxaparin Sodium (Lovenox) 40 mg SC 2100 [facility] Last Admin: 09/01/19 21:35 Dose: 40 mg Glucagon (Glucagon) 1 mg IM PRN PRN PRN Reason: Hypoglycemia Hydralazine HCl (Apresoline) 10 mg SLOW IVP Q4H PRN PRN Reason: SBP > 170 or DBP > 100 Last Admin: 09/02/19 09:40 Dose: 10 mg Dextrose/Water (D5w) 1,000 mls @ 0 mls/hr IV .Q0M PRN PRN Reason: Hypoglycemia Piperacillin Sod/Tazobactam (Sod 4.5 gm/ Sodium Chloride) 100 mls @ 200 mls/hr IVPB 0500,1100,1700,2300 [facility] Last Admin: 09/02/19 05:06 Dose: 100 mls Potassium Chloride 20 meq/ (Lactated Ringer's) 1,010 mls @ 150 mls/hr IV .Q6H44M [facility] Last Admin: 09/02/19 05:07 Dose: 1,010 mls Fentanyl Citrate 2,000 mcg/ (Sodium Chloride) 100 mls @ 0 mls/hr IV INF [facility]; Protocol Stop: 09/30/19 21:02 Last Admin: 08/31/19 23:06 Dose: 100 mls Fentanyl Citrate (Fentanyl Bolus) 250 mls @ 0 mls/hr IVPB PRN PRN PRN Reason: Breakthrough pain/agitation Stop: 09/30/19 21:02 Ketorolac Tromethamine (Toradol) 15 mg IVP Q6H PRN PRN Reason: Pain Stop: 09/06/19 11:41 Last Admin: 09/02/19 09:40 Dose: 15 mg Lorazepam (Ativan) 2 mg SLOW IVP Q1H PRN PRN Reason: Breakthrough agitation Stop: 09/30/19 21:02 Morphine Sulfate (Morphine) 2 mg SLOW IVP Q1H PRN PRN Reason: BREAKTHROUGH PAIN/Agitation Stop: 09/30/19 21:02 Morphine Sulfate (Morphine) 4 mg SLOW IVP Q2H PRN PRN Reason: Mild-Moderate Pain (1-5) Morphine Sulfate (Morphine) 6 mg SLOW IVP Q2H PRN PRN Reason: Moderate to Severe Pain (6-10) Discontinue Previous Narcotic Pain Medications And Benzodiazepines 1 each FS .ONE [facility] Stop: 09/30/19 21:02 Ondansetron HCl (Zofran) 4 mg IVP Q6H PRN PRN Reason: Nausea Pantoprazole Sodium (Protonix) 40 mg IVP DAILY [facility] Last Admin: 09/02/19 09:44 Dose: 40 mg Propofol (Diprivan) 1,000 mg IV INF PRN; Protocol PRN Reason: TO ACHIEVE GOAL RASS Stop: 09/30/19 21:02 Last Admin: 09/01/19 01:16 Dose: 1,000 mg Propofol (Diprivan Bolus) 20 mg IV Q5MIN PRN PRN Reason: BREAKTHROUGH AGITATION Stop: 09/30/19 21:02 Sertraline HCl (Zoloft) 50 mg PO QAM [facility] Last Admin: 09/01/19 12:31 Dose: 50 mg Sodium Chloride (Flush - Normal Saline) 10 ml IVF PRN PRN PRN Reason: Saline Flush Last Admin: 09/01/19 21:35 Dose: 10 ml Vital Signs & Weight: Vital Signs Temp 09/02/19 09:00 98.5 F 09/02/19 04:00 97.8 F 09/02/19 00:00 97.9 F Admit Weight 159 lb 13.362 oz Weight 159 lb 13.362 oz - Physical Exam General: appears well Neck: supple neck, midline trachea Cardiac: no murmur, regular rate, regular rhythm Lungs: normal exam Extremities: no cyanosis, no clubbing, no edema - Labs Result Diagrams: 09/02/19 05:10 09/02/19 05:10 - Assessment/Plan Assessment/Plan: Ruptured diverticula CAD s/p CABG CM EF 10-15% NSVT Previous AL HTN Former tobacco use CV status appears stable No new recommendations on coreg, lovenox
[2019-09-02] MEDS: Carvedilol 3.125 MG TAB PO SCH ×2 (11:40→20:07)
--- NOTE | 2019-09-02 13:27 | PRG ---
DATE OF SERVICE: 09/02/2019 SUBJECTIVE: Ms. Travis is postoperative day #2 following exploratory laparotomy with sigmoid colectomy and end colostomy. She was placed in Intensive Care Unit on ventilator initially. She was apparently extubated yesterday. Today, she has been hemodynamically stable. She was confused earlier and pulled out her nasogastric tube. This was replaced and it functioning appropriately. She complains of mild discomfort. She knows her name, but is uncertain where she is or how old she is or anything related to time. OBJECTIVE: VITAL SIGNS: She is afebrile. Pulse is 87 and blood pressure 150/91. LUNGS: Clear to auscultation anteriorly. ABDOMEN: Soft. Bowel sounds are present, but hypoactive. There is a left-sided ostomy, which is healthy, but there is no output from this. Urine output was 445 mL yesterday with 450 mL of gastric drainage. LABORATORY DATA: Her metabolic panel from today shows essentially normal electrolytes. Her CBC shows a hemoglobin that is stable at 9.9 with a white blood cell count of 7.5. Platelet count is fairly low at 104, but it is up from yesterday. ASSESSMENT: She appears to be stable. She is receiving IV antibiotics and we were awaiting resolution of her postoperative ileus. Since she has had no ostomy output and she had a fairly high nasogastric output yesterday, I will continue her nasogastric tube for today and encourage her to get up and out of bed. Since she is disoriented, I would continue observation in the intensive care unit for another day with probable plan is to transfer to the floor tomorrow. Job ID: [id number]
[2019-09-02] MEDS ORDERED: Furosemide 40 MG/4 ML VIAL ONE (17:54)
[2019-09-02] MEDS ORDERED: Furosemide 40 MG/4 ML VIAL SLOW IVP SCH (18:00)
[2019-09-02] MEDS: Morphine 2 MG/ML SYRINGE SLOW IVP PRN (18:03)
--- NOTE | 2019-09-02 18:20 | PRG ---
DATE OF SERVICE: 09/02/2019 SUBJECTIVE: Ms. Travis did well overnight. She is confused this morning. Pulled out her NG tube that has been replaced. This afternoon, she is a little tachypneic, so her IV fluids have been cut back to KVO and she is being given 60 of Lasix. Intake and output coming in today was positive over 6 L. She had 450 out from her NG tube overnight. OBJECTIVE: LUNGS: Remarkable for coarse equal breath sounds. HEART: Regular rhythm. ABDOMEN: Diffusely mildly tender. EXTREMITIES: Without edema. LABORATORY DATA: White count 7.5, hemoglobin 9.9, platelets 104,000. Sodium 139, potassium 4.7, chloride 110, bicarb 23, BUN 19, creatinine 0.61. IMPRESSION: 1. Respiratory failure, status post laparotomy emergently for perforated diverticulitis. 2. Status post volume resuscitation associated with her sepsis. I suspect she has third-spacing in her abdomen and in her lungs. We have given her Lasix. Cut back on her fluids. Hopefully, we will see ongoing clinical improvement. Job ID: [id number]
[2019-09-02] MEDS: Enoxaparin Sodium 40 MG/0.4 ML SYRINGE SC SCH (20:08)
[2019-09-03] MEDS: Morphine 2 MG/ML SYRINGE SLOW IVP PRN ×3 (00:09→17:53)
[2019-09-03] MEDS: Piperacillin/Tazobactam 4.5 GM in Sodium Chloride 0.9% 100 ML IVPB SCH ×4 (05:10→23:44)
[2019-09-03 05:29] LABS: Phosphorus 2.8 mg/dL (2.3-4.7)
[2019-09-03 05:38] LABS: Anion Gap 13 mmol/L (10-20); BUN (Urea Nitrogen) 18 mg/dL (9.8-20.1); Calc. Creatinine Clearance 83 mL/min (70-130); Calcium 8.1 mg/dL (7.8-10.44); Carbon Dioxide 26 mmol/L (23-31); Chloride 106 mmol/L (98-107); Estimated GFR-MDRD 87; Glucose 95 mg/dL (83-110); Potassium 3.6 mmol/L (3.5-5.1); Sodium 141 mmol/L (136-145)
[2019-09-03 05:59] LABS: Band 21 % (5-11); Hemoglobin 9.9 g/dL (12.0-16.0); Lymphocytes 8 % (21-51); MDiff Complete? YES; Macrocytosis SLIGHT = 6-15 cells (100X) (0-5/hpf); Mean Corpuscular HGB CONC 33.1 g/dL (32.0-36.0); Mean Corpuscular Hemoglobin 33.4 pg (27.0-31.0); Mean Platelet Volume 8.8 fL (7.4-10.4); Monocytes 5 % (0-10); Neutrophil 66 % (42-75); Ovalocytes SLIGHT = 2-5 cells (100X) (0-1/hpf); Platelet Count 123 thou/uL (130-400); Platelet Morphology Comment Appears Decreased; Polychromasia SLIGHT = 2-3 cells (100X) (0-2/hpf); RBC Distribution Width 14.3 % (11.5-14.5); Red Blood Cell (RBC) Count 2.98 mill/uL (4.20-5.40); Tear Drops SLIGHT = 2-5 cells (100X) (0-1/hpf); White Blood Cell (WBC) Count 11.4 thou/uL (4.8-10.8)
--- NOTE | 2019-09-03 08:03 | RAD ---
Chest one view HISTORY: Dyspnea. Follow-up. COMPARISON: 09/01/2019. FINDINGS: Cardiac silhouette is magnified and enlarged. Pulmonary vasculature is more engorged. Ill-defined airspace disease and interstitial prominence throughout the right lung has developed. Mediastinum remains midline with postoperative changes and a multi lead left subclavian cardiac elect ronic device. Endotracheal catheter no longer visible. Nasogastric tube descends to the abdomen. Right subclavian central venous catheter remains in place. Calcified breast implants again demonstrated. IMPRESSION: Interval development of mixed airspace and interstitial opacity throughout the right lung . There is also worsening of pulmonary vascular congestion. Possibly dependent edema within the right lung. Interval extubation.
--- NOTE | 2019-09-03 08:03 | PDOC.CPN ---
- Subjective Date: 09/03/19 Time: 10:38 Interval history: No changes noted overnight - Objective Allergies/Adverse Reactions: Allergies Allergy/AdvReac Type Severity Reaction Status Date / Time trazodone Allergy Verified 08/31/19 22:06 zolpidem [From Ambien] Allergy hallucinati Verified 08/31/19 22:06 ons Visit Medications: Current Medications Acetaminophen (Tylenol) 1,000 mg PO Q6H PRN PRN Reason: Fever > 101 Acetaminophen (Tylenol) 650 mg FL Q6H PRN PRN Reason: Fever > 101 Albuterol/Ipratropium (Duoneb) 3 ml NEB Q4H PRN PRN Reason: Wheezing Carvedilol (Coreg) 6.25 mg PO BID FOR[facility]LY [facility], [facility] Last Admin: 09/02/19 20:07 Dose: 6.25 mg Dextrose/Water (Dextrose 50%) 25 gm SLOW IVP PRN PRN PRN Reason: Hypoglycemia Enoxaparin Sodium (Lovenox) 40 mg SC 2100 FOR[facility], [facility] Last Admin: 09/02/19 20:08 Dose: 40 mg Glucagon (Glucagon) 1 mg IM PRN PRN PRN Reason: Hypoglycemia Hydralazine HCl (Apresoline) 10 mg SLOW IVP Q4H PRN PRN Reason: SBP > 170 or DBP > 100 Last Admin: 09/02/19 17:19 Dose: 10 mg Dextrose/Water (D5w) 1,000 mls @ 0 mls/hr IV .Q0M PRN PRN Reason: Hypoglycemia Piperacillin Sod/Tazobactam (Sod 4.5 gm/ Sodium Chloride) 100 mls @ 200 mls/hr IVPB 0500,1100,1700,2300 FOR[facility], [facility] Last Admin: 09/03/19 05:10 Dose: 100 mls Potassium Chloride 20 meq/ (Lactated Ringer's) 1,010 mls @ 0 mls/hr IV .Q0M FOR[facility], [facility]1983 Ketorolac Tromethamine (Toradol) 15 mg IVP Q6H PRN PRN Reason: Pain Stop: 09/06/19 11:41 Last Admin: 09/02/19 09:40 Dose: 15 mg Lorazepam (Ativan) 2 mg SLOW IVP Q1H PRN PRN Reason: Breakthrough agitation Stop: 09/30/19 21:02 Morphine Sulfate (Morphine) 2 mg SLOW IVP Q1H PRN PRN Reason: BREAKTHROUGH PAIN/Agitation Stop: 09/30/19 21:02 Last Admin: 09/03/19 05:10 Dose: 2 mg Morphine Sulfate (Morphine) 4 mg SLOW IVP Q2H PRN PRN Reason: Mild-Moderate Pain (1-5) Morphine Sulfate (Morphine) 6 mg SLOW IVP Q2H PRN PRN Reason: Moderate to Severe Pain (6-10) Discontinue Previous Narcotic Pain Medications And Benzodiazepines 1 each FS .ONE FOR[facility], [facility] Stop: 09/30/19 21:02 Ondansetron HCl (Zofran) 4 mg IVP Q6H PRN PRN Reason: Nausea Pantoprazole Sodium (Protonix) 40 mg IVP DAILY [facility] Last Admin: 09/02/19 09:44 Dose: 40 mg Sertraline HCl (Zoloft) 50 mg PO QAM [facility] Last Admin: 09/01/19 12:31 Dose: 50 mg Sodium Chloride (Flush - Normal Saline) 10 ml IVF PRN PRN PRN Reason: Saline Flush Last Admin: 09/02/19 20:07 Dose: 10 ml Vital Signs & Weight: Vital Signs Temp 09/03/19 04:00 97.8 F 09/03/19 03:00 97.9 F 09/03/19 00:00 97.8 F Admit Weight 159 lb 13.362 oz Weight 159 lb 13.362 oz - Physical Exam General: appears well Neck: no JVD/HJR, no masses Cardiac: no murmur, regular rate, regular rhythm Lungs: normal breath sounds Abdomen: decreased bowel sounds Extremities: no cyanosis - Labs Result Diagrams: 09/03/19 04:34 09/03/19 04:34 - Assessment/Plan Assessment/Plan: Ruptured diverticula CAD s/p CABG CM EF 10-15% NSVT Previous AR HTN Former tobacco use 09/02 REC No changes CV stable 09/01 REC CV status appears stable No new recommendations on coreg, lovenox
[2019-09-03] MEDS: Carvedilol 3.125 MG TAB PO SCH ×2 (09:09→20:42)
[2019-09-03] MEDS: Pantoprazole 40 MG VIAL IVP SCH (09:09)
--- NOTE | 2019-09-03 12:34 | PRG ---
DATE OF SERVICE: 09/03/2019 SUBJECTIVE: Ms. Travis is postoperative day #3 following laparotomy with sigmoid colectomy and end-colostomy for perforated diverticulitis. She remains extubated in the intensive care unit. I am told she developed respiratory difficulties last night for which she was diuresed with Lasix and her IV fluid was decreased. Her chest x-ray from this morning shows vascular engorgement potentially consistent with hypovolemia or pulmonary changes. Today, her primary complaint is that she is thirsty and wants to drink. Her hands are restrained because of attempts to pull out her nasogastric tube. OBJECTIVE: VITAL SIGNS: She is afebrile, pulse is 88 and regular, blood pressure is 160/95, oxygen saturation is currently 95% on 2 L nasal cannula. Her urine output for the last 24 hours was 3500 and the gastric drainage was 900 mL. LUNGS: Clear to auscultation anteriorly. CARDIAC: Regular rate and rhythm. ABDOMEN: Soft, nontender, nondistended. Normoactive bowel sounds. She, surprisingly, still has no output at all from her colostomy. LABORATORY DATA: Her metabolic panel is entirely normal including her magnesium and phosphorus. Her CBC shows that her hemoglobin is stable at 9.9, but her white blood cell count is elevated a little bit at 11.4. ASSESSMENT AND PLAN: The patient who is status post surgery for perforated diverticulitis with colostomy formation. She appears to be stable overall. She appears to have resolution of ileus and at this point, I am going to remove her nasogastric tube and allow her to begin clear liquids. We will continue with fluid restriction to hopefully avoid further pulmonary problems. Continue IV antibiotics. Job ID: [id number]
[2019-09-03] MEDS: Potassium Chloride 20 MEQ in Lactated Ringer's 1,000 ML IV SCH (12:53)
[2019-09-03] MEDS: hydrALAZINE 20 MG/ML VIAL SLOW IVP PRN (13:07)
[2019-09-03] MEDS: Morphine 4 MG/ML VIAL SLOW IVP PRN ×2 (13:13→23:47)
--- NOTE | 2019-09-03 15:03 | PRG ---
DATE OF SERVICE: 09/03/2019 SUBJECTIVE: Dulce Maria Travis still intermittently confused. We might try a little Hall marco antonio p.r.n. She improved with the Lasix yesterday. As mentioned, she was over 6 L ahead on volume. Chest x-ray today shows pulmonary edema, which I suspect was worse yesterday, but pulmonary edema was mild. She looks reasonably comfortable at this time. We will go ahead and give her another dose of Lasix today. Her hemodynamics have been stable. OBJECTIVE: LUNGS: Clear. HEART: Regular rhythm. ABDOMEN: Soft. Her NG tube is out. LABORATORY DATA: White count 11.4, hemoglobin 9.9, and platelets 123. Electrolytes are normal. IMPRESSION: Status post emergent laparotomy for perforated diverticulitis with peritonitis, it is clinically improving. I met with the daughter and answered all of her questions. Not surprisingly, she had some pulmonary third spacing given her clinical presentation. Critical care time 35 min. Job ID: [id number] MTDD
[2019-09-03] MEDS: Enoxaparin Sodium 40 MG/0.4 ML SYRINGE SC SCH (20:42)
[2019-09-03] MEDS ORDERED: Furosemide 100 MG/10 ML VIAL SLOW IVP SCH (21:30)
[2019-09-04] MEDS: Ondansetron PF 4 MG/2 ML Vial IVP PRN (00:20)
[2019-09-04] MEDS: Piperacillin/Tazobactam 4.5 GM in Sodium Chloride 0.9% 100 ML IVPB SCH ×2 (05:33→10:55)
[2019-09-04] MEDS: Morphine 4 MG/ML VIAL SLOW IVP PRN ×2 (05:43→09:04)
[2019-09-04 06:09] LABS: Anion Gap 13 mmol/L (10-20); BUN (Urea Nitrogen) 17 mg/dL (9.8-20.1); Band 4 % (5-11); Calc. Creatinine Clearance 87 mL/min (70-130); Calcium 7.8 mg/dL (7.8-10.44); Carbon Dioxide 30 mmol/L (23-31); Chloride 99 mmol/L (98-107); Estimated GFR-MDRD Greater than 90; Glucose 89 mg/dL (83-110); Hemoglobin 10.1 g/dL (12.0-16.0); Lymphocytes 3 % (21-51); MDiff Complete? YES; Mean Corpuscular Hemoglobin 33.8 pg (27.0-31.0); Mean Corpuscular Volume 99.4 fL (78.0-98.0); Mean Platelet Volume 8.4 fL (7.4-10.4); Monocytes 5 % (0-10); Neutrophil 88 % (42-75); Platelet Count 120 thou/uL (130-400); Platelet Morphology Comment Appears Decreased; RBC Distribution Width 13.9 % (11.5-14.5); Red Blood Cell (RBC) Count 2.98 mill/uL (4.20-5.40); Sodium 139 mmol/L (136-145); White Blood Cell (WBC) Count 12.9 thou/uL (4.8-10.8)
[2019-09-04 06:13] LABS: Potassium 2.8 mmol/L (3.5-5.1)
[2019-09-04] MEDS ORDERED: CCU ELECTROLYTE REPLACEMENT PROTOCOL FS PRN (06:48)
[2019-09-04] MEDS ORDERED: Magnesium 2 GM/50 ML 2 GM in Premix Bag 1 BAG IVPB PRN (06:48)
[2019-09-04] MEDS ORDERED: Potassium Chloride 40 MEQ in Sodium Chloride 0.9% 250 ML 250 ML IVPB PRN (06:48)
[2019-09-04] MEDS ORDERED: Magnesium Oxide 400 MG TAB PO PRN ×2 (06:48)
[2019-09-04] MEDS ORDERED: PHOS-NAK 1 PKT PACK PO PRN ×2 (06:48)
[2019-09-04] MEDS ORDERED: Potassium Phosphate 9 MMOL in Sodium Chloride 0.9% 100 ML IVPB PRN (06:48)
[2019-09-04] MEDS ORDERED: Potassium Phosphate 15 MMOL in Sodium Chloride 0.9% 250 ML 250 ML IV PRN (06:48)
[2019-09-04] MEDS ORDERED: Potassium Phosphate 12 MMOL in Sodium Chloride 0.9% 250 ML 250 ML IV PRN (06:48)
[2019-09-04] MEDS ORDERED: Potassium Chloride 20 MEQ TAB PO PRN (06:48)
[2019-09-04] MEDS: Potassium Chloride 40 MEQ in Premix Bag 1 BAG IVPB PRN (07:53)
[2019-09-04] MEDS: Pantoprazole 40 MG VIAL IVP SCH (08:51)
[2019-09-04] MEDS: Carvedilol 3.125 MG TAB PO SCH ×2 (08:52→20:27)
[2019-09-04] MEDS: Morphine 2 MG/ML SYRINGE SLOW IVP PRN (09:51)
--- NOTE | 2019-09-04 10:13 | PRG ---
DATE OF SERVICE: 09/04/2019 SUBJECTIVE: Dulce Maria Travis still mildly confused at night. She is in no distress. Her wounds look good. OBJECTIVE: VITAL SIGNS: She is on a 3 L cannula. Sats are 99%. Blood pressure 149/87, heart rate is 80. Intake and outputs negative 2320. LUNGS: Clear. HEART: Regular rhythm. ABDOMEN: Soft. LABORATORY DATA: White count 12.9, hemoglobin 10.1, platelets 120. Sodium 139, potassium 2.8, chloride 99, bicarb 30, BUN 17, creatinine 0.63. IMPRESSION: Status post laparotomy for perforated diverticulitis, clinically slowly improving. Job ID: [id number]
[2019-09-04 11:39] LABS: Potassium 3.6 mmol/L (3.5-5.1)
--- NOTE | 2019-09-04 12:37 | PRG ---
DATE OF SERVICE: 09/04/2019 SUBJECTIVE: Ms. Travis is postoperative day #4 following laparotomy with sigmoid colectomy with end colostomy for perforated diverticulitis. She remains in the intensive care unit. She had, had some pulmonary concerns, requiring diuresis and fluid restriction. She remains confused as well. She has been stable since I saw her yesterday. Nasogastric tube was removed at that time and she has been taking some clear liquids. She has had no nausea or vomiting. She has had absolutely no colostomy output. OBJECTIVE: VITAL SIGNS: On examination today, she is afebrile. Vital signs are within normal limits. LUNGS: Clear to auscultation anteriorly. CARDIAC: Regular rate and rhythm. ABDOMEN: Soft, nontender, with a negative pressure device in the midline. Bowel sounds are present and normoactive. The ostomy is viable. I digitally probe the ostomy. There is some dry formed stool within the ostomy and this fascial opening is appropriate size. EXTREMITIES: Unremarkable. LABORATORY DATA: Her white blood cell count has gone up today to 12.9 (from 11.4 yesterday). Hemoglobin is stable at 10.1. Chemistries showed a low potassium level of 2.8, this has come up to 3.6 with potassium supplementation. Other electrolytes are normal. ASSESSMENT AND PLAN: The patient is stable following her colon resection. She appears to be progressing appropriately. She no longer seems to have criteria that would require ICU admission. She will therefore be transferred to the telemetry floor. Dr. Veliz will return tomorrow to resume her care. Job ID: [id number]
[2019-09-04] MEDS: Piperacillin/Tazobactam 3.375 GM in Sodium Chloride 0.9% 100 ML IVPB SCH (17:46)
[2019-09-04] MEDS: Ketorolac Tromethamine 30 MG/ML VIAL IVP PRN (20:26)
[2019-09-04] MEDS: Enoxaparin Sodium 40 MG/0.4 ML SYRINGE SC SCH (20:28)
[2019-09-05] MEDS: Piperacillin/Tazobactam 3.375 GM in Sodium Chloride 0.9% 100 ML IVPB SCH ×4 (01:18→18:16)
[2019-09-05] MEDS: Ketorolac Tromethamine 30 MG/ML VIAL IVP PRN (04:00)
[2019-09-05] MEDS: Ondansetron PF 4 MG/2 ML Vial IVP PRN ×3 (04:49→22:18)
[2019-09-05 05:58] LABS: Anion Gap 11 mmol/L (10-20); BUN (Urea Nitrogen) 17 mg/dL (9.8-20.1); Calc. Creatinine Clearance 96 mL/min (70-130); Calcium 7.8 mg/dL (7.8-10.44); Carbon Dioxide 30 mmol/L (23-31); Chloride 97 mmol/L (98-107); Estimated GFR-MDRD Greater than 90; Glucose 98 mg/dL (83-110); Potassium 3.4 mmol/L (3.5-5.1); Sodium 135 mmol/L (136-145)
[2019-09-05 06:03] LABS: Hemoglobin 10.7 g/dL (12.0-16.0); Mean Corpuscular HGB CONC 33.5 g/dL (32.0-36.0); Mean Corpuscular Hemoglobin 33.7 pg (27.0-31.0); RBC Distribution Width 13.7 % (11.5-14.5); Red Blood Cell (RBC) Count 3.18 mill/uL (4.20-5.40)
[2019-09-05] MEDS: Potassium Chloride 40 MEQ in Premix Bag 1 BAG IVPB PRN (06:15)
[2019-09-05 06:35] LABS: Band 21 % (5-11); Eosinophils 1 % (0-10); Lymphocytes 5 % (21-51); MDiff Complete? YES; Mean Platelet Volume 8.2 fL (7.4-10.4); Monocytes 4 % (0-10); Neutrophil 69 % (42-75); Platelet Count 154 thou/uL (130-400); White Blood Cell (WBC) Count 14.7 thou/uL (4.8-10.8)
[2019-09-05] MEDS: Pantoprazole 40 MG VIAL IVP SCH (09:59)
[2019-09-05] MEDS: Carvedilol 3.125 MG TAB PO SCH ×2 (11:05→21:17)
[2019-09-05] MEDS ORDERED: Ondansetron ODT 4 MG TAB PO PRN (11:30)
[2019-09-05] MEDS ORDERED: Ondansetron ODT 8 MG TAB PO PRN (11:30)
[2019-09-05] MEDS ORDERED: Ondansetron ODT 8 MG TAB SL PRN (11:30)
[2019-09-05] MEDS ORDERED: Ondansetron ORAL SOLN. 4 MG/5 ML UDCUP PO PRN ×2 (11:30)
[2019-09-05] MEDS ORDERED: Furosemide 40 MG/4 ML VIAL ONE (11:54)
[2019-09-05] MEDS ORDERED: Furosemide 100 MG/10 ML VIAL IVPB SCH (12:30)
[2019-09-05] MEDS: Metoclopramide HCl 10 MG/2 ML VIAL IVP PRN ×2 (14:12→20:23)
--- NOTE | 2019-09-05 16:09 | PRG ---
DATE OF SERVICE: 09/05/2019 SUBJECTIVE: Ms. Travis was tachypneic earlier, but was given Lasix and had a good result. OBJECTIVE: VITAL SIGNS: She is afebrile. Intake and output were positive at 1645 . LUNGS: Remarkable for coarse equal breath sounds. HEART: Regular rhythm. ABDOMEN: Soft. She has had nausea today. She had some blood in her ostomy. LABORATORY DATA: White count 14.7, hemoglobin 10.7, platelets 154. Sodium 135, potassium 3.4, chloride 97, bicarb 30, BUN 17, and creatinine 0.5. We did a chest x-ray in the morning. I suspect she has noncardiogenic pulmonary edema associated with peritonitis. Hopefully, her nausea marker of an ileus and that will require replacement of an NG tube. At this point in time, however she is stable. Job ID: [id number]
[2019-09-05] MEDS: Enoxaparin Sodium 40 MG/0.4 ML SYRINGE SC SCH (21:17)
[2019-09-06] MEDS: Piperacillin/Tazobactam 3.375 GM in Sodium Chloride 0.9% 100 ML IVPB SCH ×5 (00:05→23:53)
[2019-09-06] MEDS: Metoclopramide HCl 10 MG/2 ML VIAL IVP PRN ×2 (03:22→22:33)
[2019-09-06 04:49] LABS: Anion Gap 12 mmol/L (10-20); BUN (Urea Nitrogen) 16 mg/dL (9.8-20.1); Calc. Creatinine Clearance 100 mL/min (70-130); Calcium 7.5 mg/dL (7.8-10.44); Carbon Dioxide 29 mmol/L (23-31); Chloride 93 mmol/L (98-107); Estimated GFR-MDRD Greater than 90; Glucose 93 mg/dL (83-110); Sodium 131 mmol/L (136-145)
[2019-09-06] MEDS: Levothyroxine Sodium 50 MCG TAB PO SCH (06:19)
--- NOTE | 2019-09-06 06:50 | PRG ---
DATE OF SERVICE: 09/05/2019 SUBJECTIVE: Ms. Travis is doing well. She is status post 08/31/2019 laparotomy, sigmoid colon resection, colostomy, abdominal washout. She has had a slow convalescence. She has been in the ICU on the ventilator with medical control of her atrial fibrillation. She has been extubated and orders have been written for the floor, but bed is pending. She is sitting in the chair this morning. Her respirations were slightly labored. Dr. Dickson administered Lasix, from which she had a good response. NG tube has been removed yesterday. Ostomy output 550 today. Urine output 2675 after the Lasix. White count 12, hemoglobin 10, sodium 135, potassium 3.4, creatinine 0.57, and BUN 17. Pathology report reveals diverticulitis, acute on chronic. No malignancy seen. Margins viable. OBJECTIVE: LUNGS: Clear to auscultation. No wheezing. CARDIAC: Regular rate and rhythm. ABDOMEN: Soft. Occasional bowel sounds. Colostomy is healthy. Midline wound VAC in place. EXTREMITIES: No significant edema. ASSESSMENT/PLAN: 1. Hypokalemia, replaced. 2. Ileus, resolving. She required antiemetics this morning. Her nausea is resolved. Once her colostomy output is increased, we will continue clear liquids. She has orders to go to the floor and will be transferred there when able. She is on her oral carvedilol, KVO IV fluids. Morphine has been discontinued. We will recheck her basic metabolic tomorrow. Portable chest x-ray overread in the morning. Job ID: [id number]
[2019-09-06] MEDS ORDERED: EVOLOCUMAB IM SCH ×2 (07:15→07:45)
[2019-09-06] MEDS ORDERED: Potassium Chloride 20 MEQ TAB PO SCH ×2 (07:15→17:00)
--- NOTE | 2019-09-06 07:39 | RAD ---
EXAM: Single view of the chest HISTORY: ARDS COMPARISON: 09/03/2019 FINDINGS: Single view of the chest shows an enlarged but stable cardiomediastinal silhouette. The pa cemaker and central venous catheter are unchanged in position. The patient is status post sternotomy. There is no evidence of consolidation, mass, or pleural effusion. Calcified bilateral br east implants are seen. IMPRESSION: Stable exam
[2019-09-06] MEDS ORDERED: Furosemide 40 MG TAB PO SCH (09:00)
[2019-09-06] MEDS: Ketorolac Tromethamine 30 MG/ML VIAL IVP PRN (09:34)
[2019-09-06] MEDS: Amiodarone 200 MG TAB PO SCH (09:35)
[2019-09-06] MEDS: Carvedilol 3.125 MG TAB PO SCH ×2 (09:35→20:22)
[2019-09-06] MEDS: Lisinopril 2.5 MG TAB PO SCH (09:35)
[2019-09-06] MEDS: Oxybutynin ER 5 MG TAB PO SCH (09:35)
[2019-09-06] MEDS: Spironolactone 25 MG TAB PO SCH (09:36)
--- NOTE | 2019-09-06 10:53 | PRG ---
DATE OF SERVICE: 09/06/2019 SUBJECTIVE: Dulce Maria Travis is doing reasonably well. She managed to eat some breakfast , vomited a little later OBJECTIVE: VITAL SIGNS: Afebrile, heart rate in 80s, blood pressure stable HEART: Regular. ABDOMEN: Soft. EXTREMITIES: no edema IMPRESSION: Noncardiogenic edema, resolved. Status post emergent laparotomy for diverticular perforation. We will continue to follow . Job ID: [id number] MTDD
--- NOTE | 2019-09-06 11:36 | PRG ---
DATE OF SERVICE: 09/06/2019 SUBJECTIVE: Dulce Maria Travis is doing well today. She has been moved to telemetry. She is awake and alert, getting her bath this morning. Temperature 97.6 degrees, heart rate 86, blood pressure 142/83. The patient had some nausea last night, but none today. She has had a colostomy and flatus output. OBJECTIVE: LUNGS: Clear to auscultation. CARDIAC: Regular rate and rhythm without murmur or gallop. ABDOMEN: Soft, nondistended, nontympanitic. Midline wound VAC in place. Colostomy bag in place. Stool present. She has had from stool per rectum which I reassured her is normal and will decrease with time. Bowel sounds present. Stool in her colostomy bag. EXTREMITIES: Unremarkable. LABORATORY DATA: Potassium 3, sodium 131, carbon dioxide 29, BUN and creatinine 16 and 0.55. ASSESSMENT/PLAN: Perforated diverticulitis with fecal peritonitis, status post abdominal washout, sigmoid colon resection and colostomy. The patient is doing well. She has had some intermittent nausea, but this has resolved. She has good bowel function. We will initiate full liquids today. She is TKO IV fluids. Her potassium is low. We will replace that and recheck her basic metabolic in the morning. Overall, the patient is doing well. We will ask family service caseworker to start rehab inpatient evaluation for deconditioning as she is very weak. Job ID: [id number]
[2019-09-06] MEDS: traMADol HCl 50 MG TAB PO PRN ×3 (12:26→20:21)
[2019-09-06] MEDS: Atorvastatin Calcium 40 MG TAB PO SCH (20:21)
[2019-09-06] MEDS: Enoxaparin Sodium 40 MG/0.4 ML SYRINGE SC SCH (20:22)
[2019-09-07 04:46] LABS: Hemoglobin 10.4 g/dL (12.0-16.0); Platelet Count 189 thou/uL (130-400)
[2019-09-07 05:07] LABS: Anion Gap 10 mmol/L (10-20); BUN (Urea Nitrogen) 13 mg/dL (9.8-20.1); Calc. Creatinine Clearance 101 mL/min (70-130); Calcium 7.7 mg/dL (7.8-10.44); Carbon Dioxide 32 mmol/L (23-31); Chloride 93 mmol/L (98-107); Estimated GFR-MDRD Greater than 90; Glucose 95 mg/dL (83-110); Potassium 3.8 mmol/L (3.5-5.1); Sodium 131 mmol/L (136-145)
[2019-09-07 05:09] LABS: Calc. Creatinine Clearance 105 mL/min (70-130); Estimated GFR-MDRD Greater than 90
[2019-09-07] MEDS: Levothyroxine Sodium 50 MCG TAB PO SCH (05:41)
[2019-09-07] MEDS: Piperacillin/Tazobactam 3.375 GM in Sodium Chloride 0.9% 100 ML IVPB SCH ×3 (05:41→17:30)
[2019-09-07] MEDS ORDERED: Aspirin 81 mg Enteric Coated Tablet PO SCH (09:15)
[2019-09-07] MEDS: Amiodarone 200 MG TAB PO SCH (09:40)
[2019-09-07] MEDS: Ondansetron PF 4 MG/2 ML Vial IVP PRN ×2 (09:40→19:54)
[2019-09-07] MEDS: Furosemide 40 MG TAB PO SCH ×2 (09:41→14:26)
[2019-09-07] MEDS: Spironolactone 25 MG TAB PO SCH (09:41)
[2019-09-07] MEDS: Carvedilol 3.125 MG TAB PO SCH ×2 (09:41→19:59)
[2019-09-07] MEDS: Oxybutynin ER 5 MG TAB PO SCH (09:41)
[2019-09-07] MEDS: Lisinopril 2.5 MG TAB PO SCH (09:41)
[2019-09-07] MEDS: Potassium Chloride 20 MEQ in Lactated Ringer's 1,000 ML IV SCH (10:21)
--- NOTE | 2019-09-07 13:59 | PRG ---
DATE OF SERVICE: 09/07/2019 SUBJECTIVE: Ms. Travis is afebrile. She is out of bed, sitting in the chair today. OBJECTIVE: VITAL SIGNS: Heart rate is in the 70s, respiratory rate is 15, oximetry is 99% on 2 L, blood pressure is 103/68. LUNGS: Clear. HEART: Regular rhythm. ABDOMEN: Soft. LABORATORY DATA: Hemoglobin is 10.4 today. Electrolytes were essentially normal. IMPRESSION AND PLAN: 1. Status post laparotomy for perforated diverticulitis, clinically stable. 2. Deconditioning. She needs to go to rehab and then to a skilled unit, then probably live in assisted living after that. The referral has been made. Job ID: [id number]
--- NOTE | 2019-09-07 17:50 | PRG ---
DATE OF SERVICE: 09/07/2019 SUBJECTIVE: Dulce Maria Travis is doing well today. She is tolerating her diet. She to regular diet. She is 7 days status post laparotomy, colon resection, colostomy for perforated diverticulitis and peritonitis. Her nausea has resolved. OBJECTIVE: VITAL SIGNS: Temperature 98.2 degrees, pulse 84, blood pressure 106/67. LUNGS: Clear to auscultation. CARDIAC: Regular rate and rhythm. No murmur or gallop. ABDOMEN: Soft, nondistended. Wound VAC in place. EXTREMITIES: Unremarkable. LABORATORY DATA: Hemoglobin 10.4. Creatinine is normal. ASSESSMENT AND PLAN: Doing well. We will convert to oral antibiotics. We will plan transfer to rehab tomorrow Job ID: [id number]
[2019-09-07] MEDS: traMADol HCl 50 MG TAB PO PRN (19:54)
[2019-09-07] MEDS: Atorvastatin Calcium 40 MG TAB PO SCH (19:59)
[2019-09-07] MEDS: Enoxaparin Sodium 40 MG/0.4 ML SYRINGE SC SCH (20:00)
[2019-09-07] MEDS: Amoxicillin/Potassium Clav 500 MG TAB PO SCH (20:00)
[2019-09-08] MEDS: Levothyroxine Sodium 50 MCG TAB PO SCH (05:01)
[2019-09-08] MEDS: traMADol HCl 50 MG TAB PO PRN ×2 (05:01→10:22)
[2019-09-08] MEDS ORDERED: METHOCARBAMOL PO PRN (06:52)
[2019-09-08] MEDS ORDERED: Methocarbamol 500 MG TAB PO PRN (06:57)
[2019-09-08] MEDS ORDERED: Aspirin 81 mg Enteric Coated Tablet PO SCH (09:00)
[2019-09-08] MEDS ORDERED: Lisinopril 2.5 MG TAB PO SCH (09:00)
[2019-09-08] MEDS ORDERED: Non-Formulary Item 1 EACH (Atorvastatin Calcium [Atorvastatin Calcium] 80 MG) PO SCH (09:00)
[2019-09-08] MEDS ORDERED: Levothyroxine Sodium 88 MCG TAB PO SCH (09:00)
[2019-09-08] MEDS ORDERED: Aspirin 325 mg Enteric Coated Tablet PO SCH (09:00)
[2019-09-08] MEDS ORDERED: Amiodarone 200 MG TAB PO SCH ×2 (09:00)
--- NOTE | 2019-09-08 09:03 | PDOC.FMACP ---
Advance Care Planning - Note Summary: Advanced Care Planning was discussed. The diagnosis, prognosis and goals of care were discussed. Appropriate forms and documentation to accomplish the goals of care were discussed. All questions were answered. The Palliative Care Team will be engaged to assist with completion of any outstanding forms that are needed. Felicita Martinez RNcoat hanger shaper machine operator confirmed with Dr Dickson that patient is a DNAR and associated paperwork in place, and goals of care in place related to current admission and multiple morbidities.
[2019-09-08] MEDS: Oxybutynin ER 5 MG TAB PO SCH (11:13)
[2019-09-08] MEDS: Spironolactone 25 MG TAB PO SCH (11:13)
[2019-09-08] MEDS: Carvedilol 3.125 MG TAB PO SCH (11:14)
[2019-09-08] MEDS: Furosemide 40 MG TAB PO SCH (11:16)
[2019-09-08] MEDS: Amoxicillin/Potassium Clav 500 MG TAB PO SCH (11:20)
--- NOTE | 2019-09-08 13:51 | DIS ---
DATE OF ADMISSION: 08/31/2019 DATE OF DISCHARGE: 09/08/2019 TRANSFER TO REHAB: 09/08/2019. HOSPITAL DIAGNOSES: 1. Perforated diverticulitis with peritonitis, feculent. 2. Coronary artery disease, remote history of tobacco use. 3. Pacemaker, past. CONSULTATION: 1. Dr. Ameya Dickson, Critical Care, Pulmonary Medicine, ventilator management. 2. Dr. Angus Butler, for help in management of her severe ischemic cardiomyopathy with ejection fraction of 15% and 20%; history of ventricular tachycardia with history of old myocardial infarction, former smoker. PROCEDURES DURING HOSPITALIZATION: Emergent laparotomy, sigmoid colon resection, colostomy, postoperative ventilator ICU management, postoperative telemetry. DISPOSITION: Discharged to rehab. DISCHARGE MEDICATIONS: 1. Albuterol inhalers p.r.n. 2. Tylenol p.o. p.r.n. 3. Motrin p.r.n. 4. Ultram p.r.n. pain. 5. Colostomy management. 6. Wound care management. 7. Wound VAC. 8. Coreg 6.25 mg b.i.d. 9. Lovenox 40 subcu at bedtime. 10. Augmentin 500 mg b.i.d., changed oral from IV last night. 11. Protonix 40 mg a day. 12. Sertraline 50 mg a day. 13. Spironolactone 25 a.m. 14. Ditropan 10 mg a.m. 15. Methocarbamol 1 p.o. b.i.d. 16. Lisinopril 2.5 a.m. 17. Levothyroxine 88 mcg a day. 18. Furosemide 40 mg a day. 19. Carvedilol 1 tab b.i.d. with meals. 20. Aspirin 325 daily. 21. Amiodarone daily. FOLLOW UP: Dr. Veliz in 2 to 3 weeks. Recommend luís removed next week. Wound VAC. Wound care to continue. Colostomy care to continue. HISTORY: A 78-year-old female, presenting with severe abdominal pain. Underwent CT scan, revealing free air, received intravenous fluids and antibiotics, underwent laparotomy, colon resection, colostomy. Postoperatively, she did well on the ventilator, was extubated, and eventually moved to telemetry. Physical Therapy saw her. By the time of this dictation, she has made a remarkable turnaround. She is alert, oriented, and appropriate, and more interactive with therapy. She is going to rehab for reconditioning. Follow up with Dr. Adkins. Follow up with Dr. Veliz in 2 to 3 weeks. [place] removed next week and oral antibiotics for 5 days. Job ID: [id number]
[2019-09-08 19:27] VITALS: BP 122/68; TEMP 98.1
[2019-09-08] MEDS ORDERED: Atorvastatin Calcium 40 MG TAB PO SCH (21:00)
== END 2019-09-08 13:31 | DRG 329 ==
LOC: ERS 10:28 → SDC/OP 13:55 → CCU 14:00 → 2NO 09-05 17:42
PROVIDERS: ADMIT Specialist; ATTEND Specialist
PROC: 0DTN0ZZ Resection of Sigmoid Colon, Open Approach (ICD-10-PCS; principal; 2019-08-31)
PROC: 0D1H0Z4 Bypass Cecum to Cutaneous, Open Approach (ICD-10-PCS; 2019-08-31)
PROC: 0W3P0ZZ Control Bleeding in Gastrointestinal Tract, Open Approach (ICD-10-PCS; 2019-08-31)
PROC: 05H533Z Insertion of Infusion Device into Right Subclavian Vein, Percutaneous Approach (ICD-10-PCS; 2019-08-31)
PROC: 30283B1 Transfusion of Nonautologous 4-Factor Prothrombin Complex Concentrate into Vein, Percutaneous Approach (ICD-10-PCS; 2019-08-31)
PROC: 5A1935Z Respiratory Ventilation, Less than 24 Consecutive Hours (ICD-10-PCS; 2019-08-31)
DX: K57.20 Diverticulitis of large intestine with perforation and abscess without bleeding (principal); K65.9 Peritonitis, unspecified; J95.821 Acute postprocedural respiratory failure; A41.9 Sepsis, unspecified organism; K56.7 Ileus, unspecified; D78.12 Accidental puncture and laceration of the spleen during other procedure; I47.2 Ventricular tachycardia; Z96.653 Presence of artificial knee joint, bilateral; I25.10 Atherosclerotic heart disease of native coronary artery without angina pectoris; I10 Essential (primary) hypertension; G31.84 Mild cognitive impairment of uncertain or unknown etiology; Z66 Do not resuscitate; Z51.5 Encounter for palliative care; Y83.8 Other surgical procedures as the cause of abnormal reaction of the patient, or of later complication, without mention of misadventure at the time of the procedure; Y73.3 Surgical instruments, materials and gastroenterology and urology devices (including sutures) associated with adverse incidents; Y92.234 Operating room of hospital as the place of occurrence of the external cause; E78.00 Pure hypercholesterolemia, unspecified; I25.5 Ischemic cardiomyopathy; E03.9 Hypothyroidism, unspecified; I25.2 Old myocardial infarction; I48.91 Unspecified atrial fibrillation; E87.6 Hypokalemia; Z95.0 Presence of cardiac pacemaker; Z87.891 Personal history of nicotine dependence; Z95.1 Presence of aortocoronary bypass graft; Z88.8 Allergy status to other drugs, medicaments and biological substances
CPT/HCPCS: 36415; 36430; 51702; 71045; 74177; 80048; 80053; 81003; 81015; 82805; 83605; 83735; 84100; 85014; 85018; 85025; 85049; 85610; 85730; 86850; 86900; 86901; 88307; 88311; 93005; 94002; 94003; 94760; 96361; 96365; 96375; 96376; C9113; J0360; J1100; J1650; J1885; J1940; J2270; J2370; J2405; J2543; J2704; J2765; J3010; J3475; J3480; J3490; J7050; J7120; P9016; P9047; Q0162; S0020

== ENCOUNTER 2020-02-21 08:56 | Inpatient (IN) | payer MEDICARE, OTHER ==
--- NOTE | 2020-02-20 08:33 | HP ---
HISTORY OF PRESENT ILLNESS: Dulce Maria Travis is a 79-year-old female, ambulatory with a cane, required operative intervention on 08/31/2019 for perforated diverticulitis with peritonitis. She underwent central line placement, mobilization of splenic flexure, distal transverse colon, descending colon, sigmoid colon resection with Irna's pouch, marked with a 2-0 Prolene, end colostomy left lower quadrant. The patient has seen Dr. Butler and preoperative clearance obtained. She has bowel prep ordered by Dr. Palm, and planning colonoscopy day prior to her laparoscopic colostomy reversal. She understands risks and benefits and consents. ALLERGIES: TRAZODONE AND ZOLPIDEM. SOCIAL HISTORY: Tobacco, none. Alcohol none. MEDICATIONS: 1. Lisinopril 2.5 mg a day. 2. Aspirin 325 mg a day. 3. Synthroid 88 mcg a day. 4. Oxybutynin 10 mg extended release daily. 5. Spironolactone 25 mg a day. 6. Protonix 40 mg a day. 7. Zofran p.r.n. 8. Carvedilol 6.25 mg b.i.d. 9. Atorvastatin one tablet once a day. 10. Robaxin 750 mg twice a day. 11. Amiodarone 200 mg once a day. 12. Mirtazapine 30 mg at bedtime. PAST SURGICAL HISTORY: 1. Bilateral total knee replacements. 2. Appendectomy. 3. Total abdominal hysterectomy. 4. Upper endoscopy last year. 5. History of empiric dilatation by Dr. Palm, noting no stricture on last colonoscopy more than 10 years ago, planning colonoscopy prior to this procedure. 6. Coronary artery bypass grafting in 2009 after myocardial infarction, followed by Dr. Butler. Recent cardiac clearance in preparation for this surgery. PAST MEDICAL HISTORY: 1. Coronary artery disease. 2. Hypertension. 3. Mild cognitive impairment, but makes her own decisions, signs her own consents. 4. History of diverticulitis. The patient's daughter has power of attorney lawyer. The patient has been DNR and that was continued perioperatively, although suspended during the last operation. PHYSICAL EXAMINATION: VITAL SIGNS: Weight 152 pounds, height 65 inches, 25 BMI, blood pressure 109/51, heart rate 61, and temperature 97.3 degrees. HEAD, EARS, EYES, NOSE, AND THROAT: Unremarkable. LUNGS: Clear to auscultation. CARDIAC: Regular rate and rhythm without murmur or gallop. ABDOMEN: Soft and nontender. Colostomy healthy. Midline incision well healed. EXTREMITIES: Unremarkable. ASSESSMENT AND PLAN: Undesired colostomy. We will plan laparoscopic colostomy reversal after Dr. Palm the day prior plans to perform colonoscopy. Risks of infection, bleeding, reoperation, anastomotic leak were discussed. She consents. We will plan this under general anesthesia and TAP block. She will have a bowel prep, undergo her colonoscopy, continue clear liquids after colonoscopy, take oral antibiotic, complete her bowel prep and take her medications on the morning of surgery. Plan admission postoperatively. Job ID: [id number]
[2020-02-21] MEDS ORDERED: Bupivacaine 0.25% HCL 30 ML VIAL ONE (09:33)
[2020-02-21] MEDS ORDERED: Lidocaine 1% w/Epinephrine 1:100K 20 ML VIAL ONE (09:33)
[2020-02-21] MEDS ORDERED: SUGAMMADEX SODIUM 200 MG/2 ML VIAL ONE (09:52)
[2020-02-21] MEDS ORDERED: Fentanyl 100 MCG/2 ML VIAL ONE ×3 (09:52→16:20)
[2020-02-21] MEDS ORDERED: cefOXitin Sodium/Dextrose 2 GM/50 ML BAG ONE (09:55)
[2020-02-21] MEDS ORDERED: Ketorolac Tromethamine 30 MG/ML VIAL ONE (09:55)
[2020-02-21] MEDS ORDERED: Acetaminophen 500 MG TAB ONE (09:55)
[2020-02-21] MEDS ORDERED: Dexamethasone 20 MG/5 ML VIAL ONE (10:27)
[2020-02-21] MEDS ORDERED: PHENYLEPHRINE-NS 100 MCG/ML 10 ML SYRINGE ONE (10:27)
[2020-02-21] MEDS ORDERED: Rocuronium Bromide 10 MG/ML (10ML VIAL) ONE (10:27)
[2020-02-21] MEDS ORDERED: Bupivacaine HCl 0.5%/Epinephrine 1:200,000/PF 30 ml Vial ONE (10:27)
[2020-02-21] MEDS ORDERED: Lidocaine 1% PF 5 ML VIAL ONE (10:27)
[2020-02-21] MEDS ORDERED: Ondansetron PF 4 MG/2 ML Vial ONE (10:27)
[2020-02-21] MEDS ORDERED: Midazolam HCl 2 mg/2 ml Vial ONE (10:27)
[2020-02-21] MEDS ORDERED: ceFOXitin 1 GM VIAL ONE (14:43)
[2020-02-21] MEDS ORDERED: Morphine 2 MG/ML VIAL SLOW IVP PRN (15:35)
[2020-02-21] MEDS ORDERED: Morphine 4 MG/ML VIAL SLOW IVP PRN (15:35)
[2020-02-21] MEDS ORDERED: Ondansetron PF 4 MG/2 ML Vial IVP PRN (15:35)
[2020-02-21] MEDS ORDERED: hydrALAZINE 20 MG/ML VIAL SLOW IVP PRN (15:35)
[2020-02-21] MEDS ORDERED: Ondansetron ODT 8 MG TAB SL PRN (15:39)
[2020-02-21] MEDS ORDERED: Ondansetron ODT 8 MG TAB PO PRN (15:39)
[2020-02-21] MEDS ORDERED: Acetaminophen 500 MG TAB PO PRN (15:40)
[2020-02-21] MEDS: Ketorolac Tromethamine 30 MG/ML VIAL IVP SCH ×2 (17:58→23:41)
[2020-02-21] MEDS: Lactated Ringer's 1,000 ML IV SCH ×2 (18:24→23:46)
[2020-02-21 18:27] VITALS: BMI 25.7
[2020-02-21] MEDS: Famotidine/PF 20 mg/2ml Vial SLOW IVP SCH (19:51)
[2020-02-21] MEDS: Carvedilol 3.125 MG TAB PO SCH (19:53)
[2020-02-21] MEDS: Mirtazapine 30 MG Soltab PO SCH (19:54)
[2020-02-21] MEDS: Enoxaparin Sodium 40 MG/0.4 ML SYRINGE SC SCH (19:56)
[2020-02-21] MEDS: Famotidine 20 MG TAB PO SCH (20:10)
--- NOTE | 2020-02-21 20:53 | OP ---
DATE OF PROCEDURE: 02/21/2020 PREOPERATIVE DIAGNOSIS: Undesired colostomy, initially placed for perforated diverticulitis. POSTOPERATIVE DIAGNOSIS: Undesired colostomy, initially placed for perforated diverticulitis with extensive adhesions. PROCEDURES PERFORMED: Laparoscopic adhesiolysis converted to open midline laparotomy infraumbilical with completion adhesiolysis, segmental small-bowel resection and colostomy reversal, 33 EEA stapler, anastomosis checked under water, colorectal without leak. Note, conversion to a laparotomy due to extensive adhesions, not able to be managed laparoscopically and segmental small-bowel resection due to enterotomy adherent to the procedure due to extensive adhesions. ANESTHESIA: General anesthesia, TAP block. ESTIMATED BLOOD LOSS: 78 mL. BLOOD TRANSFUSION: None. DESCRIPTION OF PROCEDURE: Patient was taken to the operating room, where under general anesthesia in the dorsal lithotomy position, Mota catheter left in place postoperatively and abdomen prepared with ChloraPrep and draped in routine fashion. Betadine prep was used for perineum, perianal, and buttocks. Colostomy had been closed with continuous suture of 2-0 silk. Right subcostal and left subcostal incisions made. Pneumoperitoneum to 15 mmHg obtained with a Veress needle with contralateral port placed under laparoscopic visualization. Adhesiolysis undertaken. There were dense filmy adhesions throughout. Once the right lateral abdominal wall had been cleared, right mid lateral abdominal incision was made and another 5 port placed and more adhesions cleared and a right lower quadrant incision made and a 12 port placed. Extensive adhesiolysis undertaken freeing the small bowel from the anterior abdominal wall from around the colostomy. I then mobilized the colostomy. There were extensive adhesions in the pelvis. There was a loop of small bowel traversing entirely adherent to the abdominal wall suprapubic. As I was taking this down, there was a serosal tear, small enterotomy. As there were extensive adhesions in the pelvis, decision was made for an infraumbilical incision and laparotomy to manage the adhesions of the small bowel enterotomy occurring inherent to the procedure due to the extensive adhesive disease. Midline incision was made infraumbilically, carried down through the pubis skin, subcutaneous tissue, midline fascia, and abdominal cavity sharply. A segment of small bowel that had suffered enterotomy was dissected freed and mesentery divided with the LigaSure and [id number] anastomosis was completed with a DEIDRE 75 stapler, closing mesenteric defect with 3-0 silk, reinforcing the staple line with interrupted Lembert suture of 3-0 silk. Good anastomosis palpated. Small bowel was inspected and noted to be free of injury. The colostomy taken down using sharp dissection around the colon edges of the skin, dissected free from subcutaneous tissue, fascia, dropping into the abdominal cavity. The distal few inches of colon were resected by dividing the mesentery with the LigaSure and colon opened and a pursestring suture of 2-0 Prolene placed and a 33 mm EEA anvil placed and secured with a pursestring suture. Our gloves were then changed. Adhesiolysis completed in the pelvis, freeing the small bowel from the pelvis rotating it to the patient's right. Pelvis inspected, marking Prolene suture identified, rectal stump identified, dissected free. The anal Sizers then placed and serially placed from a 28-33 Sizer. I had to resect a small segment of rectal sigmoid as the Sizers did not reach into this. The adjacent fatty tissue divided with the LigaSure and the upper rectum divided with a Contour stapler. Stapler then placed per anus and directed in the anterior rectum just distal to the staple line and post advanced out under direct visualization and connected to the anvil in the proximal colon and anastomosis created with a staple technique 33 EEA stapler removing intact donuts and checking the staple line with the proctoscope, noting no leak with air insufflation. Good hemostasis noted. Small bowel inspected. No other problems noted. Sponge and needle counts were correct. The posterior fascia and peritoneum at the colostomy site closed with continuous suture of #1 PDS. The fascia midline closed with #1 PDS. Skin and subcutaneous tissue were thoroughly irrigated. Anterior rectus sheath approximated with interrupted [id number]-mz-ludyl sutures of 0 PDS. Subcutaneous tissues approximated with 3-0 Monocryl, skin with luís. Sterile dressings applied. Patient tolerated the procedure well. Job ID: [id number]
[2020-02-21] MEDS ORDERED: Methocarbamol 500 MG TAB PO PRN (21:00)
[2020-02-22 05:22] LABS: #Lymphocytes 0.7 thou/uL (1.20-3.40); #Monocytes 0.7 thou/uL (0.11-0.59); #Neutrophils 7.4 thou/uL (1.40-6.50); %Basophils 0.1 % (0.0-1.0); %Eosinophils 0.2 % (0.0-10.0); %Lymphocytes 7.5 % (21.0-51.0); %Monocytes 7.8 % (0.0-10.0); %Neutrophils 84.4 % (42.0-75.0); Hemoglobin 11.2 g/dL (12.0-16.0); Mean Corpuscular Hemoglobin 34.1 pg (27.0-31.0); Mean Platelet Volume 7.7 fL (7.4-10.4); Platelet Count 148 thou/uL (130-400); RBC Distribution Width 13.1 % (11.5-14.5); Red Blood Cell (RBC) Count 3.27 mill/uL (4.20-5.40); White Blood Cell (WBC) Count 8.8 thou/uL (4.8-10.8)
[2020-02-22 05:40] LABS: Anion Gap 13 mmol/L (10-20); BUN (Urea Nitrogen) 22 mg/dL (9.8-20.1); Calc. Creatinine Clearance 65 mL/min (70-130); Calcium 7.9 mg/dL (7.8-10.44); Carbon Dioxide 18 mmol/L (23-31); Chloride 111 mmol/L (98-107); Estimated GFR-MDRD 69; Glucose 101 mg/dL (83-110); Potassium 4.2 mmol/L (3.5-5.1); Sodium 138 mmol/L (136-145)
[2020-02-22] MEDS: Levothyroxine Sodium 88 MCG TAB PO SCH (05:53)
[2020-02-22] MEDS: Ketorolac Tromethamine 30 MG/ML VIAL IVP SCH ×4 (05:53→23:08)
[2020-02-22] MEDS: Famotidine 20 MG TAB PO SCH ×2 (08:03→20:16)
[2020-02-22] MEDS: Oxybutynin ER 5 MG TAB PO SCH (08:03)
[2020-02-22] MEDS: Aspirin 325 mg Enteric Coated Tablet PO SCH (08:03)
[2020-02-22] MEDS: Amiodarone 200 MG TAB PO SCH (08:04)
[2020-02-22] MEDS: Famotidine/PF 20 mg/2ml Vial SLOW IVP SCH ×2 (08:04→21:38)
[2020-02-22] MEDS ORDERED: Lactated Ringer's 1,000 ML IV SCH (08:45)
[2020-02-22] MEDS: Carvedilol 3.125 MG TAB PO SCH ×2 (08:47→20:16)
[2020-02-22] MEDS: Spironolactone 25 MG TAB PO SCH (08:47)
[2020-02-22] MEDS: Lisinopril 2.5 MG TAB PO SCH (08:47)
[2020-02-22] MEDS: Lactated Ringer's 1,000 ML IV SCH ×2 (11:32→17:19)
[2020-02-22] MEDS ORDERED: HYDROcodone/Acetaminophen 10/325 mg Tablet PO PRN (13:18)
[2020-02-22] MEDS: traMADol HCl 50 MG TAB PO PRN ×3 (13:52→23:01)
--- NOTE | 2020-02-22 13:54 | PRG ---
DATE OF SERVICE: 02/22/2020 SUBJECTIVE: Dulce Maria Travis is postoperative day #1 laparoscopy converted to laparotomy due to adhesions with small bowel resection adherent to the procedure due to adhesions, anastomosis with sigmoid colon resection with colostomy reversal, and colorectal 33 mm EEA stapler anastomosis. She was started on ice chips yesterday, clear liquids today. She has not had any nausea or vomiting. She is walking with a walking team. She is using a wheeled walker. She is actually doing very well, not having any nausea or vomiting. Mota was removed this morning, and her urine is becoming clear. She was initially dehydrated, urine concentrated. She is given greater than maintenance IV fluid and IV fluid bolus this morning. Her hemoglobin remained stable at 11, white count normal, electrolytes normal. She states she feels pretty well. OBJECTIVE: LUNGS: Clear to auscultation. CARDIAC: Regular rate and rhythm without murmur or gallop. ABDOMEN: Soft. Dressing is dry. ASSESSMENT AND PLAN: Doing well status post small bowel segmental resection and colostomy reversal, laparoscopy converted to laparotomy. She has managed well on oral analgesics. At this point, we will decrease her IV fluids, advance her to full liquids this evening. She hopes that she can go home over the weekend as her daughter would be available to help care for her. Her low blood pressure of 90 was treated with IV fluid bolus, and she has done well since. The patient does take hydrocodone at home because of chronic SI joint problems and hip problems and arthritis and is followed by Dr. Moreno, who gives her periodic injections. We will order tramadol and hydrocodone as needed for pain. Overall, she is doing well. Job ID: [id number]
[2020-02-22] MEDS: Enoxaparin Sodium 40 MG/0.4 ML SYRINGE SC SCH (20:16)
[2020-02-22] MEDS: Mirtazapine 30 MG Soltab PO SCH (20:16)
[2020-02-23] MEDS: Lactated Ringer's 1,000 ML IV SCH ×2 (03:18→11:41)
[2020-02-23] MEDS: Levothyroxine Sodium 88 MCG TAB PO SCH (04:43)
[2020-02-23] MEDS: Ketorolac Tromethamine 30 MG/ML VIAL IVP SCH ×2 (04:44→12:21)
[2020-02-23 06:20] LABS: Hemoglobin 9.9 g/dL (12.0-16.0); MDiff Complete? YES; Mean Corpuscular HGB CONC 31.4 g/dL (32.0-36.0); Mean Corpuscular Hemoglobin 33.2 pg (27.0-31.0); Platelet Count 121 thou/uL (130-400); RBC Distribution Width 13.1 % (11.5-14.5); Red Blood Cell (RBC) Count 2.99 mill/uL (4.20-5.40); White Blood Cell (WBC) Count 8.4 thou/uL (4.8-10.8)
[2020-02-23 06:21] LABS: Band 4 % (5-11); Eosinophils 4 % (0-10); Hypochromia SLIGHT = 6-15 cells (100X) (0-5/hpf); Lymphocytes 8 % (21-51); Macrocytosis SLIGHT = 6-15 cells (100X) (0-5/hpf); Metamyelocyte 1 % (0-0); Monocytes 7 % (0-10); Neutrophil 76 % (42-75); Platelet Morphology Comment Appears Decreased
[2020-02-23] MEDS: Famotidine 20 MG TAB PO SCH (08:42)
[2020-02-23] MEDS: Spironolactone 25 MG TAB PO SCH (08:42)
[2020-02-23] MEDS: Aspirin 325 mg Enteric Coated Tablet PO SCH (08:42)
[2020-02-23] MEDS: Oxybutynin ER 5 MG TAB PO SCH (08:42)
[2020-02-23] MEDS: Lisinopril 2.5 MG TAB PO SCH (08:45)
[2020-02-23] MEDS: Carvedilol 3.125 MG TAB PO SCH (08:45)
[2020-02-23] MEDS: Amiodarone 200 MG TAB PO SCH (08:46)
[2020-02-23] MEDS: Famotidine/PF 20 mg/2ml Vial SLOW IVP SCH (09:03)
--- NOTE | 2020-02-23 09:42 | PDOC.FMACP ---
Advance Care Planning - Problem (1) Diverticulitis Status: Acute Code(s): K57.92 - DVTRCLI OF INTEST, PART UNSP, W/O PERF OR ABSCESS W/O BLEED (2) Colostomy in place Status: Acute Code(s): Z93.3 - COLOSTOMY STATUS (3) Palliative care encounter Status: Acute Code(s): Z51.5 - ENCOUNTER FOR PALLIATIVE CARE - Note Participants: patient, palliative care Summary: Revisited Advanced Care Planning, opportunity to decline. The diagnosis, prognosis and goals of care were discussed. Appropriate forms and documentation to accomplish the goals of care were discussed. All questions were answered. Confirmed MPOA, DNAR status with the exception of surgical procedure, family and patient to discuss Directive to Physician. Please refer to Michelle fallon in note section. The Palliative Care Team will continue to assist with completion of any outstanding forms as desire to complete or revisit are determined. Time Spent (mins): 20
[2020-02-23 11:56] VITALS: TEMP 98
[2020-02-23] MEDS: traMADol HCl 50 MG TAB PO PRN (12:18)
[2020-02-23 16:20] VITALS: BP 110/60
--- NOTE | 2020-02-23 23:05 | DIS ---
DATE OF ADMISSION: 02/21/2020 DATE OF DISCHARGE: 02/23/2020 DISCHARGE DIAGNOSIS: Undesired colostomy placed for diverticulitis, perforated. PROCEDURES PERFORMED: Laparoscopic adhesiolysis converted to laparotomy, segmental small bowel resection, and colostomy reversal. HISTORY: A 79-year-old female presenting with diverticulitis requiring emergent laparotomy, colostomy, and sigmoid resection as convalesced and reports now after colonoscopy for elective colostomy reversal undergoing the above procedure and postoperatively convalesced, tolerated her diet, discharged home with her preoperative medications as well as Ultram #30 one refill. She takes hydrocodone 10/[address] Moreno one-half tablet to one tablet three times a day for chronic SI pain and back pain. The patient is doing well. She has luís, that need to be removed in about a week to 10 days. She will shower and bathe daily. Avoid heavy lifting. Take MiraLAX. Resume home medications as well as prescription given for tramadol and [place] 10/325. Follow up in my office 7 to 10 day for staple removal. Her daughter was given a staple remover to remove her luís if they desire. Otherwise, I will see her in the office to do this. Job ID: [id number]
--- NOTE | 2020-02-26 07:41 | PQF ---
CLINICAL DOCUMENTATION CLARIFICATION FORM: Dear : Cesario Veliz Date / Time: 02/26/2020 07:35 Please exercise your independent, professional judgment in responding to the clarification form. Clinical indicators are provided on the bottom of this form for your review Can you please clarify the status of patients diverticulitis? Please check appropriate box(es): [ ] Diverticulitis still present and actively treated during admission [ yes] History of diverticulitis only [ ] Other diagnosis [ ] Unable to determine Physician Signature: Date/Time: For continuity of documentation, please document condition throughout progress notes and discharge summary. Thank You. To be completed by CDI/Coding staff for physician review: Present Clinical Indicators - Signs / Symptoms / Labs Results and Location in Medical Record [x] History of diverticulitis HP 02/20 [x] undesired colostomy placed for perforated diverticulitis with extensive adhesion OP Note 02/20 [x] Diverticulitis of intestine PN 02/20 [x] WBC 02/21=8.8 02/22=8.4 Labs 02/21 Present Risk Factors Results and Location in Medical Record [x] 79 years old female HP 02/20 [x] Peritoneal adhesion OP Note 02/20 Present Treatments Results and Location in Medical Record [x] Lap to open colostomy reversal with lysis of adhesion OP Note 02/20 [x] Cefoxitin 2gm IV AUG 27 [x] IVR AUG 27 CDS/Floor Space Allocator Signature: Jeffery Mancilla Phone #: ext [phone] Date/Time: 02/26/20 07:35 This is a permanent part of the Medical Record [facility]
== END 2020-02-23 17:30 | disposition home or self-care (01) | DRG 331 ==
LOC: SDC 08:56 → SURG A 15:35
PROVIDERS: ADMIT Specialist; ATTEND Specialist
PROC: 0DNW4ZZ Release Peritoneum, Percutaneous Endoscopic Approach (ICD-10-PCS; principal; 2020-02-21)
PROC: 0DBN0ZZ Excision of Sigmoid Colon, Open Approach (ICD-10-PCS; 2020-02-21)
PROC: 0DNW0ZZ Release Peritoneum, Open Approach (ICD-10-PCS; 2020-02-21)
PROC: 0DB80ZZ Excision of Small Intestine, Open Approach (ICD-10-PCS; 2020-02-21)
DX: Z43.3 Encounter for attention to colostomy (principal); Z66 Do not resuscitate; Z51.5 Encounter for palliative care; Z96.653 Presence of artificial knee joint, bilateral; I25.10 Atherosclerotic heart disease of native coronary artery without angina pectoris; I10 Essential (primary) hypertension; K66.0 Peritoneal adhesions (postprocedural) (postinfection); E78.00 Pure hypercholesterolemia, unspecified; E86.0 Dehydration; Z88.8 Allergy status to other drugs, medicaments and biological substances; Z79.82 Long term (current) use of aspirin; Z79.899 Other long term (current) drug therapy; Z90.49 Acquired absence of other specified parts of digestive tract; Z90.710 Acquired absence of both cervix and uterus; Z95.1 Presence of aortocoronary bypass graft; Z53.31 Laparoscopic surgical procedure converted to open procedure; Z95.810 Presence of automatic (implantable) cardiac defibrillator; I25.2 Old myocardial infarction; Z87.891 Personal history of nicotine dependence
CPT/HCPCS: 36415; 36416; 80048; 85025; 88304; J0670; J0694; J1100; J1650; J1885; J2250; J2270; J2405; J2704; J3010; S0020; S0028

== ENCOUNTER 2020-08-24 13:19 | Observation (INO) | payer MEDICARE, OTHER ==
[2020-08-24] MEDS ORDERED: Ondansetron ODT 4 MG TAB PO PRN (16:53)
[2020-08-24] MEDS ORDERED: Acetaminophen 325 MG TAB PO PRN (16:53)
[2020-08-24] MEDS ORDERED: Ondansetron PF 4 MG/2 ML Vial IVP PRN (16:53)
[2020-08-24 17:30] VITALS: BMI 27.6
[2020-08-24 17:31] LABS: #Eosinphils 0.1 thou/uL (0.0-0.7); #Lymphocytes 1.6 thou/uL (1.20-3.40); #Monocytes 0.9 thou/uL (0.11-0.59); #Neutrophils 7.9 thou/uL (1.40-6.50); %Basophils 0.4 % (0.0-1.0); %Eosinophils 0.7 % (0.0-10.0); %Lymphocytes 14.9 % (21.0-51.0); %Monocytes 8.7 % (0.0-10.0); %Neutrophils 75.2 % (42.0-75.0); Hemoglobin 13.2 g/dL (12.0-16.0); Mean Corpuscular HGB CONC 33.5 g/dL (32.0-36.0); Mean Corpuscular Hemoglobin 34.9 pg (27.0-31.0); Mean Platelet Volume 7.3 fL (7.4-10.4); Platelet Count 176 thou/uL (130-400); RBC Distribution Width 12.4 % (11.5-14.5); Red Blood Cell (RBC) Count 3.79 mill/uL (4.20-5.40); White Blood Cell (WBC) Count 10.5 thou/uL (4.8-10.8)
[2020-08-24 17:56] LABS: ALT (SGPT) 12 U/L (8-55); AST (SGOT) 19 U/L (5-34); Albumin 3.9 g/dL (3.4-4.8); Alkaline Phosphatase 73 U/L (40-110); Anion Gap 17 mmol/L (10-20); BUN (Urea Nitrogen) 19 mg/dL (9.8-20.1); Bilirubin, Total 1.3 mg/dL (0.2-1.2); Calc. Creatinine Clearance 69 mL/min (70-130); Calcium 8.2 mg/dL (7.8-10.44); Carbon Dioxide 20 mmol/L (23-31); Chloride 108 mmol/L (98-107); Globulin 2.6 g/dL (2.4-3.5); Glucose 101 mg/dL (83-110); Potassium 4.1 mmol/L (3.5-5.1); Protein, Total 6.5 g/dL (5.8-8.1); Sodium 141 mmol/L (136-145)
[2020-08-24] MEDS: Lactated Ringer's 1,000 ML IV SCH (18:02)
[2020-08-24] MEDS: Famotidine/PF 20 mg/2ml Vial SLOW IVP SCH (21:36)
[2020-08-25 05:00] LABS: Hemoglobin 12.5 g/dL (12.0-16.0); Mean Corpuscular HGB CONC 32.6 g/dL (32.0-36.0); Mean Corpuscular Hemoglobin 33.9 pg (27.0-31.0); Mean Platelet Volume 7.4 fL (7.4-10.4); Platelet Count 163 thou/uL (130-400); RBC Distribution Width 12.5 % (11.5-14.5); Red Blood Cell (RBC) Count 3.68 mill/uL (4.20-5.40); White Blood Cell (WBC) Count 10.4 thou/uL (4.8-10.8)
[2020-08-25 05:21] LABS: ALT (SGPT) 11 U/L (8-55); AST (SGOT) 15 U/L (5-34); Albumin 3.6 g/dL (3.4-4.8); Alkaline Phosphatase 70 U/L (40-110); Anion Gap 14 mmol/L (10-20); BUN (Urea Nitrogen) 18 mg/dL (9.8-20.1); Bilirubin, Total 1.2 mg/dL (0.2-1.2); Calc. Creatinine Clearance 75 mL/min (70-130); Calcium 8.2 mg/dL (7.8-10.44); Carbon Dioxide 23 mmol/L (23-31); Chloride 109 mmol/L (98-107); Globulin 2.3 g/dL (2.4-3.5); Glucose 101 mg/dL (83-110); Potassium 3.8 mmol/L (3.5-5.1); Protein, Total 5.9 g/dL (5.8-8.1); Sodium 142 mmol/L (136-145)
[2020-08-25] MEDS: Lactated Ringer's 1,000 ML IV SCH ×2 (06:06→15:08)
[2020-08-25] MEDS: Famotidine/PF 20 mg/2ml Vial SLOW IVP SCH (08:54)
[2020-08-25] MEDS ORDERED: Lisinopril 2.5 MG TAB PO SCH (11:45)
[2020-08-25] MEDS ORDERED: Levothyroxine Sodium 88 MCG TAB PO SCH (11:45)
[2020-08-25] MEDS ORDERED: Methocarbamol 500 MG TAB PO PRN (11:45)
[2020-08-25] MEDS ORDERED: MD-Gastroview 120 ML BOT ONE (12:19)
[2020-08-25 15:57] VITALS: BP 138/76; TEMP 97.9
[2020-08-25] MEDS ORDERED: Carvedilol 3.125 MG TAB PO SCH (21:00)
[2020-08-25] MEDS ORDERED: Atorvastatin Calcium 40 MG TAB PO SCH (21:00)
[2020-08-25] MEDS ORDERED: Mirtazapine 30 MG Soltab PO SCH (21:00)
[2020-08-26] MEDS ORDERED: Levothyroxine Sodium 88 MCG TAB PO SCH (06:00)
[2020-08-26] MEDS ORDERED: Oxybutynin ER 5 MG TAB PO SCH (09:00)
[2020-08-26] MEDS ORDERED: Non-Formulary Item 1 EACH (Atorvastatin Calcium [Atorvastatin Calcium] 80 MG Tablet) PO SCH (09:00)
[2020-08-26] MEDS ORDERED: Non-Formulary Item 1 EACH (Oxybutynin Chloride [Ditropan Xl] 10 MG Tab.Er.24) PO SCH (09:00)
[2020-08-26] MEDS ORDERED: Lisinopril 2.5 MG TAB PO SCH (09:00)
[2020-08-26] MEDS ORDERED: Aspirin 325 mg Enteric Coated Tablet PO SCH (09:00)
[2020-08-26] MEDS ORDERED: Amiodarone 200 MG TAB PO SCH ×2 (09:00)
== END 2020-08-25 19:04 | disposition home or self-care (01) ==
LOC: SURG B 15:37 → INTOOBSV 15:37
PROVIDERS: ADMIT Family Medicine; ATTEND Family Medicine
DX: K56.50 Intestinal adhesions [bands], unspecified as to partial versus complete obstruction (principal); R11.2 Nausea with vomiting, unspecified; I25.10 Atherosclerotic heart disease of native coronary artery without angina pectoris; I10 Essential (primary) hypertension; E78.5 Hyperlipidemia, unspecified; E03.9 Hypothyroidism, unspecified; I48.91 Unspecified atrial fibrillation; M85.80 Other specified disorders of bone density and structure, unspecified site; I47.2 Ventricular tachycardia; Z87.891 Personal history of nicotine dependence; Z79.82 Long term (current) use of aspirin; Z79.899 Other long term (current) drug therapy; Z88.8 Allergy status to other drugs, medicaments and biological substances; Z95.810 Presence of automatic (implantable) cardiac defibrillator; Z90.49 Acquired absence of other specified parts of digestive tract
CPT/HCPCS: 36415; 74018; 74250; 80053; 82607; 82746; 85025; 85027; 93005; 93010; 96374; 96376; G0378; Q0162; Q9963; S0028